=== PATIENT | male | born 1940 | race Caucasian/White ===

== ENCOUNTER → 2017-11-01 | Outpatient (CLI) | payer MEDICARE, SELFPAY | PROVIDERS: Visit Provider Nurse Practitioner | DX: I48.91 Unspecified atrial fibrillation (principal); Z79.01 Long term (current) use of anticoagulants; Z51.81 Encounter for therapeutic drug level monitoring | CPT/HCPCS: 36415; 85610 ==

== ENCOUNTER → 2017-11-27 09:50 | Outpatient (CLI) | payer MEDICARE, SELFPAY ==
[2017-11-27 13:26] LABS: INR 3.07 (0.9-1.1); Prothrombin Time 33.5 seconds (9.4-11.8)
== END ==
PROVIDERS: Visit Provider Nurse Practitioner
DX: I48.91 Unspecified atrial fibrillation (principal); Z79.01 Long term (current) use of anticoagulants; Z51.81 Encounter for therapeutic drug level monitoring
CPT/HCPCS: 36415; 85610

== ENCOUNTER → 2017-12-28 09:22 | Outpatient (CLI) | payer MEDICARE, SELFPAY ==
[2017-12-28 14:37] LABS: INR 3.71 (0.9-1.1); Prothrombin Time 40.6 seconds (9.4-11.8)
== END ==
PROVIDERS: Visit Provider Nurse Practitioner
DX: I48.91 Unspecified atrial fibrillation (principal)
CPT/HCPCS: 36415; 85610

== ENCOUNTER → 2018-01-25 08:49 | Outpatient (CLI) | payer MEDICARE, SELFPAY ==
[2018-01-25 14:38] LABS: INR 3.11 (0.9-1.1)
== END ==
PROVIDERS: Visit Provider Nurse Practitioner
DX: Z79.01 Long term (current) use of anticoagulants (principal); Z51.81 Encounter for therapeutic drug level monitoring; I48.91 Unspecified atrial fibrillation
CPT/HCPCS: 36415; 85610

== ENCOUNTER → 2018-02-23 10:23 | Outpatient (CLI) | payer MEDICARE, SELFPAY ==
[2018-02-23 13:30] LABS: INR 3.18 (0.9-1.1); Prothrombin Time 34.8 seconds (9.4-11.8)
== END ==
PROVIDERS: Visit Provider Nurse Practitioner
DX: Z79.01 Long term (current) use of anticoagulants (principal); Z51.81 Encounter for therapeutic drug level monitoring; I48.91 Unspecified atrial fibrillation
CPT/HCPCS: 36415; 85610

== ENCOUNTER → 2018-03-12 09:08 | Outpatient (CLI) | payer MEDICARE, SELFPAY ==
[2018-03-12 13:55] LABS: INR 1.94 (0.9-1.1); Prothrombin Time 21.1 seconds (9.4-11.8)
== END ==
PROVIDERS: Visit Provider Nurse Practitioner
DX: Z79.01 Long term (current) use of anticoagulants (principal); Z51.81 Encounter for therapeutic drug level monitoring; I48.91 Unspecified atrial fibrillation
CPT/HCPCS: 36415; 85610

== ENCOUNTER → 2018-04-11 09:06 | Outpatient (CLI) | payer MEDICARE, SELFPAY ==
[2018-04-11 14:12] LABS: Prothrombin Time 21.8 seconds (9.4-11.8)
== END ==
PROVIDERS: Visit Provider Nurse Practitioner
DX: I48.91 Unspecified atrial fibrillation (principal)
CPT/HCPCS: 36415; 85610

== ENCOUNTER → 2018-05-21 08:39 | Outpatient (CLI) | payer MEDICARE, SELFPAY ==
[2018-05-21 13:25] LABS: INR 2.19 (0.9-1.1); Prothrombin Time 22.1 seconds (9.4-11.8)
== END ==
PROVIDERS: Visit Provider Nurse Practitioner
DX: Z79.01 Long term (current) use of anticoagulants (principal); Z51.81 Encounter for therapeutic drug level monitoring; I48.91 Unspecified atrial fibrillation
CPT/HCPCS: 36415; 85610

== ENCOUNTER → 2018-06-21 11:32 | Outpatient (CLI) | payer MEDICARE, SELFPAY ==
[2018-06-21 14:13] LABS: INR 2.81 (0.9-1.1); Prothrombin Time 28.1 seconds (9.4-11.8)
== END ==
PROVIDERS: Visit Provider Nurse Practitioner
DX: I48.91 Unspecified atrial fibrillation (principal)
CPT/HCPCS: 36415; 85610

== ENCOUNTER → 2018-07-30 09:31 | Outpatient (CLI) | payer MEDICARE, SELFPAY | PROVIDERS: PCP Nurse Practitioner; Visit Provider Nurse Practitioner | DX: I48.91 Unspecified atrial fibrillation (principal) | CPT/HCPCS: 36415; 85610 ==

== ENCOUNTER → 2018-08-21 10:16 | Outpatient (CLI) | payer MEDICARE, SELFPAY ==
[2018-08-21 14:17] LABS: INR 2.17 (0.9-1.1); Prothrombin Time 21.9 seconds (9.4-11.8)
== END ==
PROVIDERS: PCP Nurse Practitioner; Visit Provider Nurse Practitioner
DX: Z51.81 Encounter for therapeutic drug level monitoring (principal); Z79.01 Long term (current) use of anticoagulants; I48.91 Unspecified atrial fibrillation
CPT/HCPCS: 36415; 85610

== ENCOUNTER → 2018-09-25 09:47 | Outpatient (CLI) | payer MEDICARE, SELFPAY ==
[2018-09-25 14:12] LABS: INR 2.19 (0.9-1.1); Prothrombin Time 22.1 seconds (9.4-11.8)
== END ==
PROVIDERS: Visit Provider Nurse Practitioner
DX: Z51.81 Encounter for therapeutic drug level monitoring (principal); Z79.01 Long term (current) use of anticoagulants; I48.91 Unspecified atrial fibrillation
CPT/HCPCS: 36415; 85610

== ENCOUNTER → 2018-10-24 08:37 | Outpatient (CLI) | payer MEDICARE, SELFPAY ==
[2018-10-24 14:57] LABS: INR 1.87 (0.9-1.1); Prothrombin Time 18.9 seconds (9.4-11.8)
== END ==
PROVIDERS: Visit Provider Nurse Practitioner
DX: I48.91 Unspecified atrial fibrillation (principal)
CPT/HCPCS: 36415; 85610

== ENCOUNTER → 2018-11-30 09:42 | Outpatient (CLI) | payer MEDICARE, SELFPAY ==
[2018-11-30 14:18] LABS: INR 1.71 (0.9-1.1); Prothrombin Time 17.3 seconds (9.4-11.8)
== END ==
PROVIDERS: Visit Provider Nurse Practitioner
DX: Z51.81 Encounter for therapeutic drug level monitoring (principal); Z79.01 Long term (current) use of anticoagulants; I48.91 Unspecified atrial fibrillation
CPT/HCPCS: 36415; 85610

== ENCOUNTER → 2018-12-17 08:38 | Outpatient (CLI) | payer MEDICARE, SELFPAY ==
[2018-12-17 13:56] LABS: INR 1.83 (0.9-1.1); Prothrombin Time 18.5 seconds (9.4-11.8)
== END ==
PROVIDERS: Visit Provider Nurse Practitioner
DX: Z51.81 Encounter for therapeutic drug level monitoring (principal); Z79.01 Long term (current) use of anticoagulants; I48.91 Unspecified atrial fibrillation
CPT/HCPCS: 36415; 85610

== ENCOUNTER → 2018-12-31 09:57 | Outpatient (CLI) | payer MEDICARE, SELFPAY ==
[2018-12-31 13:53] LABS: INR 2.04 (0.9-1.1); Prothrombin Time 20.6 seconds (9.4-11.8)
== END ==
PROVIDERS: Visit Provider Nurse Practitioner
DX: Z51.81 Encounter for therapeutic drug level monitoring (principal); Z79.01 Long term (current) use of anticoagulants; I48.91 Unspecified atrial fibrillation
CPT/HCPCS: 36415; 85610

== ENCOUNTER → 2019-01-28 10:48 | Outpatient (CLI) | payer MEDICARE, SELFPAY ==
[2019-01-28 14:43] LABS: Prothrombin Time 25.1 seconds (9.4-11.8)
== END ==
PROVIDERS: Visit Provider Nurse Practitioner
DX: Z51.81 Encounter for therapeutic drug level monitoring (principal); Z79.01 Long term (current) use of anticoagulants; I48.91 Unspecified atrial fibrillation
CPT/HCPCS: 36415; 85610

== ENCOUNTER → 2019-02-28 09:10 | Outpatient (CLI) | payer MEDICARE, SELFPAY ==
[2019-02-28 15:48] LABS: INR 2.12 (0.9-1.1); Prothrombin Time 21.4 seconds (9.4-11.8)
== END ==
PROVIDERS: Visit Provider Nurse Practitioner
DX: Z51.81 Encounter for therapeutic drug level monitoring (principal); Z79.01 Long term (current) use of anticoagulants; I48.91 Unspecified atrial fibrillation
CPT/HCPCS: 36415; 85610

== ENCOUNTER → 2019-03-13 08:42 | Outpatient (CLI) | payer MEDICARE, SELFPAY ==
[2019-03-13 14:08] LABS: INR 1.69 (0.9-1.1); Prothrombin Time 17.2 seconds (9.4-11.8)
== END ==
PROVIDERS: Visit Provider Nurse Practitioner
DX: I48.91 Unspecified atrial fibrillation (principal)
CPT/HCPCS: 36415; 85610

== ENCOUNTER → 2019-03-29 08:23 | Outpatient (CLI) | payer MEDICARE, SELFPAY ==
[2019-03-29 14:51] LABS: INR 3.56 (0.9-1.1); Prothrombin Time 34.9 seconds (9.4-11.8)
== END ==
PROVIDERS: PCP Nurse Practitioner; Visit Provider Nurse Practitioner
DX: Z51.81 Encounter for therapeutic drug level monitoring (principal); Z79.01 Long term (current) use of anticoagulants; I48.91 Unspecified atrial fibrillation
CPT/HCPCS: 36415; 85610

== ENCOUNTER → 2019-04-09 08:20 | Outpatient (CLI) | payer MEDICARE, SELFPAY ==
[2019-04-09 15:26] LABS: INR 1.72 (0.9-1.1); Prothrombin Time 17.4 seconds (9.4-11.8)
== END ==
PROVIDERS: Visit Provider Nurse Practitioner
DX: Z51.81 Encounter for therapeutic drug level monitoring (principal); Z79.01 Long term (current) use of anticoagulants; I48.91 Unspecified atrial fibrillation
CPT/HCPCS: 36415; 85610

== ENCOUNTER → 2019-04-26 09:31 | Outpatient (CLI) | payer MEDICARE, SELFPAY ==
[2019-04-26 13:40] LABS: INR 1.98 (0.9-1.1); Prothrombin Time 19.9 seconds (9.4-11.8)
== END ==
PROVIDERS: Visit Provider Nurse Practitioner
DX: Z51.81 Encounter for therapeutic drug level monitoring (principal); Z79.01 Long term (current) use of anticoagulants; I48.91 Unspecified atrial fibrillation
CPT/HCPCS: 36415; 85610

== ENCOUNTER → 2019-05-22 10:50 | Outpatient (CLI) | payer MEDICARE, SELFPAY ==
[2019-05-22 15:48] LABS: INR 1.81 (0.9-1.1); Prothrombin Time 18.3 seconds (9.4-11.8)
== END ==
PROVIDERS: Visit Provider Nurse Practitioner
DX: Z51.81 Encounter for therapeutic drug level monitoring (principal); Z79.01 Long term (current) use of anticoagulants; I48.91 Unspecified atrial fibrillation
CPT/HCPCS: 36415; 85610

== ENCOUNTER → 2019-06-13 08:34 | Outpatient (CLI) | payer MEDICARE, SELFPAY ==
[2019-06-13 14:58] LABS: INR 2.33 (0.9-1.1); Prothrombin Time 23.3 seconds (9.4-11.8)
== END ==
PROVIDERS: Visit Provider Nurse Practitioner
DX: Z51.81 Encounter for therapeutic drug level monitoring (principal); Z79.01 Long term (current) use of anticoagulants; I48.91 Unspecified atrial fibrillation
CPT/HCPCS: 36415; 85610

== ENCOUNTER → 2019-07-22 08:12 | Outpatient (CLI) | payer MEDICARE, SELFPAY ==
[2019-07-22 14:39] LABS: INR 1.66 (0.9-1.1); Prothrombin Time 16.9 seconds (9.4-11.8)
== END ==
PROVIDERS: Visit Provider Nurse Practitioner
DX: Z51.81 Encounter for therapeutic drug level monitoring (principal); Z79.01 Long term (current) use of anticoagulants; I48.91 Unspecified atrial fibrillation
CPT/HCPCS: 36415; 85610

== ENCOUNTER → 2019-08-12 09:10 | Outpatient (CLI) | payer MEDICARE, SELFPAY ==
[2019-08-12 15:40] LABS: INR 1.91 (0.9-1.1); Prothrombin Time 19.3 seconds (9.4-11.8)
== END ==
PROVIDERS: Visit Provider Internal Medicine Cardiovascular Disease
DX: Z51.81 Encounter for therapeutic drug level monitoring (principal); Z79.01 Long term (current) use of anticoagulants; I48.91 Unspecified atrial fibrillation
CPT/HCPCS: 36415; 85610

== ENCOUNTER → 2019-08-27 08:53 | Outpatient (CLI) | payer MEDICARE, SELFPAY ==
[2019-08-27 14:32] LABS: INR 2.21 (0.9-1.1); Prothrombin Time 22.1 seconds (9.4-11.8)
== END ==
PROVIDERS: Visit Provider Internal Medicine Cardiovascular Disease
DX: I48.91 Unspecified atrial fibrillation (principal)
CPT/HCPCS: 36415; 85610

== ENCOUNTER → 2019-09-24 09:32 | Outpatient (CLI) | payer MEDICARE, SELFPAY ==
[2019-09-24 13:38] LABS: INR 2.16 (0.9-1.1); Prothrombin Time 21.7 seconds (9.4-11.8)
== END ==
PROVIDERS: Visit Provider Internal Medicine Cardiovascular Disease
DX: Z51.81 Encounter for therapeutic drug level monitoring (principal); Z79.01 Long term (current) use of anticoagulants; I48.91 Unspecified atrial fibrillation
CPT/HCPCS: 36415; 85610

== ENCOUNTER → 2019-10-22 11:10 | Outpatient (CLI) | payer MEDICARE, SELFPAY ==
[2019-10-22 14:49] LABS: INR 2.91 (0.9-1.1); Prothrombin Time 28.8 seconds (9.4-11.8)
== END ==
PROVIDERS: PCP Internal Medicine Adolescent Medicine; Visit Provider Internal Medicine Adolescent Medicine
DX: Z51.81 Encounter for therapeutic drug level monitoring (principal); Z79.01 Long term (current) use of anticoagulants; I48.91 Unspecified atrial fibrillation
CPT/HCPCS: 85610

== ENCOUNTER → 2019-11-28 10:28 | Outpatient (CLI) | payer MEDICARE, SELFPAY ==
[2019-11-28 14:15] LABS: Prothrombin Time 19.2 seconds (9.4-11.8)
== END ==
PROVIDERS: Visit Provider Internal Medicine Cardiovascular Disease
DX: I48.91 Unspecified atrial fibrillation (principal)
CPT/HCPCS: 36415; 85610

== ENCOUNTER → 2020-01-08 09:34 | Outpatient (CLI) | payer MEDICARE, SELFPAY ==
[2020-01-08 15:40] LABS: INR 1.95 (0.9-1.1); Prothrombin Time 19.6 seconds (9.4-11.8)
== END ==
PROVIDERS: Visit Provider Internal Medicine Cardiovascular Disease
DX: Z51.81 Encounter for therapeutic drug level monitoring (principal); Z79.01 Long term (current) use of anticoagulants; I48.91 Unspecified atrial fibrillation
CPT/HCPCS: 36415; 85610

== ENCOUNTER → 2020-01-29 09:15 | Outpatient (CLI) | payer MEDICARE, SELFPAY ==
[2020-01-29 14:27] LABS: INR 2.64 (0.9-1.1); Prothrombin Time 26.2 seconds (9.4-11.8)
== END ==
PROVIDERS: Visit Provider Internal Medicine Cardiovascular Disease
DX: Z51.81 Encounter for therapeutic drug level monitoring (principal); Z79.01 Long term (current) use of anticoagulants; I48.91 Unspecified atrial fibrillation
CPT/HCPCS: 36415; 85610

== ENCOUNTER 2021-02-17 08:29 | Observation (INO) | payer MEDICARE, SELFPAY ==
[2021-02-17] VITALS (11 sets, daily range): BP systolic 126–173; BP diastolic 60–84; PULSE 67–71; RESP 16–18; TEMP 36.5–36.9; O2SAT 94–100; BMI 45.3
[2021-02-17 09:05] LABS: Occult Blood,Stool Positive (Negative)
[2021-02-17 09:13] LABS: Basophils # 0.1 K/mm3 (0-0.2); Basophils % 0.9 % (0.1-2.0); Eosinophils # 0.2 K/mm3 (0.0-0.4); Eosinophils % 2.1 % (0.1-12.0); Hematocrit 42.6 % (42.0-52.0); Hemoglobin 13.3 g/dL (14.1-18.0); Lymphocytes # 2.6 K/mm3 (0.7-4.5); Lymphocytes % 26.6 % (10-50); Mean Corpuscular HGB Conc 31.1 g/dL (31.8-35.4); Mean Corpuscular Hemoglobin 26.1 pg (27.0-31.2); Mean Corpuscular Volume 83.9 fl (80-94); Mean Platelet Volume 8.4 fl (7.4-10.4); Monocytes # 5.8 K/mm3 (0.1-1.0); Monocytes % 58.6 % (1.7-9.3); Neutrophils # 1.2 K/mm3 (1.8-7.8); Neutrophils % 11.7 % (37.0-80.0); Platelet Count 161 K/mm3 (142-424); Red Blood Count 5.08 M/mm3 (4.60-6.20); Red Cell Distribution Width 15.8 % (11.5-17.5); White Blood Count 9.8 K/mm3 (4.8-10.8)
[2021-02-17 09:15] LABS: MANUAL DIFFERENTIAL MANUAL DIFFERENTIAL (MANUAL DIFF)
[2021-02-17 09:16] LABS: Chloride 106 mmol/L (98-107); Potassium 4.4 mmoL/L (3.5-5.1); Sodium 137 mmol/L (136-145)
[2021-02-17 09:19] LABS: Alanine Aminotransferase 19 U/L (12-78); Albumin Level 4.1 g/dl (3.5-5.0); Albumin/Globulin Ratio 1.4 (1.1-1.8); Alkaline Phosphatase 95 U/L (38-126); Anion Gap 9.4 mEq/L (5-15); Aspartate Amino Transferase 28 U/L (17-59); Bilirubin,Total 0.7 mg/dl (0.2-1.3); Blood Urea Nitrogen 31 mg/dl (9-20); Carbon Dioxide 26 mmol/L (22.0-30.0); Creatinine Clearance Estimated 57 mL/min (50-200); Estimated Glomerular Filt Rate 72 ml/min (>60); GFR (African American) 87 ML/MIN (>60); Total Protein,Serum 7.1 g/dl (6.3-8.2)
[2021-02-17 09:20] LABS: Calcium 9.5 mg/dl (8.4-10.2); Glucose 112 mg/dl (74-100)
[2021-02-17 09:23] LABS: Eosinophils % 1 % (0-3); Lymphocytes % 17 % (10-50); Monocytes % 5 % (2-9); Neutrophils % 77 % (42-76); Platelet Estimate Normal; Total Cells Counted 100
[2021-02-17 09:24] LABS: Hypochromasia 1+
[2021-02-17 09:32] LABS: INR 2.35 (0.9-1.1)
--- NOTE | 2021-02-17 09:46 | PC.NURSE ---
paged Dr Phillips
--- NOTE | 2021-02-17 09:54 | PC.NURSE ---
ELIJAH SANDHU speaking with Dr. Puri
[2021-02-17 09:57] LABS: Microscopic, Urine URINE MICROSCOPIC (MICROSCOPIC)
[2021-02-17 10:00] LABS: Appearance,Urine CLEAR (Clear); Bilirubin,Urine Negative (Negative); Blood, Urine TRACE-I (Negative); Color,Urine YELLOW (Yellow); Glucose,Urine (UA) Negative (Negative); Ketones,Urine Negative (Negative); Leukocyte Esterase,Urine Negative (Negative); Nitrate,Urine Negative (Negative); Protein,Urine Negative (Negative); Specific Gravity, Urine 1.025 (1.005-1.030); Urobilinogen,Urine 0.2 EU/dl (0.2)
--- NOTE | 2021-02-17 10:01 | PC.NURSE ---
placed call to Dr Hernandez
[2021-02-17 10:08] LABS: Squamous Epithelial Cell,Urine Occasional #/hpf (0-5)
--- NOTE | 2021-02-17 10:12 | HMH.EDGENADL ---
ED Disposition Clinical Impression: GI bleed, Anticoagulated on Coumadin Disposition: Admitted As Inpatient Condition on Discharge: Good Instructions: DI for Gastrointestinal Bleeding Referrals: Jennie Rao [Primary Care Provider] - - Critical Care Critical Care Time: No Attestation: On 02/17/21, the high probability of a clinically significant, sudden or life threatening deterioration of the following system(s) required my full and direct attention, intervention and personal management. The time I documented below is in addition to time spent performing reported procedures but includes the following listed in this critical care notation. Medical Decision Making - Medical Records Medical records reviewed: Yes: I reviewed the patient's medical records. - Aron Inquiry Pt receiving controlled substance: No Vital Signs: 02/17/21 08:29 02/17/21 09:00 02/17/21 09:26 Temperature 97.9 F Temperature Source Oral Pulse Rate 70 69 Pulse Rate [Right Radial] 70 Respiratory Rate 18 18 Blood Pressure 173/84 H 173/84 H Blood Pressure [Right Arm] 159/80 H Blood Pressure Mean 113 Blood Pressure Mean [Right Arm] 106 Blood Pressure Source [Right Arm] Automatic Cuff Blood Pressure Position [Right Arm] Sitting 02 Sat by Pulse Oximetry 97 100 98 Oxygen Delivery Method Room Air - Lab Data Lab Results 02/17/21 08:43: Stool Occult Blood Positive A 02/17/21 08:54: Urine Color Yellow, Urine Appearance Clear, Urine pH 6.0, Ur Specific [place] 1.025, Urine Protein Negative, Urine Glucose (UA) Negative, Urine Ketones Negative, Urine Blood Trace-i, Urine Nitrate Negative, Urine Bilirubin Negative, Urine Urobilinogen 0.2, Ur Leukocyte Esterase Negative, Urine RBC 3-5, Urine WBC 3-5, Ur Squamous Epith Cells Occasional, Urine Bacteria None 02/17/21 09:03: WBC 9.8, RBC 5.08, Hgb 13.3 L, Hct 42.6, MCV 83.9, MCH 26.1 L, MCHC 31.1 L, RDW 15.8, Plt Count 161, MPV 8.4, Neut % (Auto) 11.7 L, Lymph % (Auto) 26.6, [place] % (Auto) 58.6 H, Eos % (Auto) 2.1, Baso % (Auto) 0.9, Neut # (Auto) 1.2 L, Lymph # (Auto) 2.6, [place] # (Auto) 5.8 H, Eos # (Auto) 0.2, Baso # (Auto) 0.1, Total Counted 100, Neutrophils % (Manual) 77 H, Lymphocytes % (Manual) 17, Monocytes % (Manual) 5, Eosinophils % (Manual) 1, Platelet Estimate Normal, Hypochromasia 1+ 02/17/21 09:03: Sodium 137, Potassium 4.4, Chloride 106, Carbon Dioxide 26, Anion Gap 9.4, BUN 31 H, Creatinine 1.00, Estimated Creat Clear 57, Estimated GFR 72, Est GFR ( Amer) 87, Glucose 112 H, Calcium 9.5, Total Bilirubin 0.7, AST 28, ALT 19, Alkaline Phosphatase 95, Total Protein 7.1, Albumin 4.1, Globulin 3.0, Albumin/Globulin Ratio 1.4 02/17/21 09:03: PT 26.0 H, INR 2.35 H 02/17/21 09:03: Digoxin 1.00 Result diagrams: 02/17/21 09:03 02/17/21 09:03 Orders (Tests/Meds): ORDERS Category Date Time Status Consult to Surgeon On-Call [Consult to On-Call Gen'l Cons 02/17/21 10:09 Ordered Surgeon] [CONS] Routine Complete Blood Count Auto Diff AMLAB Lab 02/18/21 06:00 Ordered Complete Blood Count Auto Diff Timed Lab 02/17/21 14:00 Ordered Comprehensive Metabolic Panel AMLAB Lab 02/18/21 06:00 Ordered Full Resp Panel w/COVID ([facility]) Routine Lab 02/17/21 10:04 Ordered Prothrombin Time INR AMLAB Lab 02/18/21 06:00 Ordered Medical Decision Narrative: 80-year-old male presents with lower GI bleed. He is awake and alert with normal vital signs in no acute distress comfortable in the bed with normal abdominal exam. He has not had a bowel movement in the emergency department. Occult stool showed heme positive stool without active bleeding. No indication for CT scan at this time without abdominal pain or other vital sign abnormalities. INR was therapeutic at 2.35 and hemoglobin was 13.3 no indication for blood at this time. I discussed case with Dr. Flores who recommended admission to the hospital for consultation. I discussed the case with Dr. Hernandez who recommended adm
[2021-02-17 10:13] LABS: Adenovirus,PCR Not Detected (NotDetected); Bordetella Pertussis Not Detected (NotDetected); Chlamydophila Pneumoniae, PCR Not Detected (NotDetected); Coronavirus 19, PCR Not Detected (NotDetected); Coronavirus 229E Not Detected (NotDetected); Coronavirus NL63 Not Detected (NotDetected); Coronavirus OC43 Not Detected (NotDetected); Coronovirus HKU1,PCR Not Detected (NotDetected); Human Metapneumovirus Not Detected (NotDetected); Influenza A, PCR Not Detected (NotDetected); Influenza AH1, 2009 Not Detected (NotDetected); Influenza AH1, PCR Not Detected (NotDetected); Influenza AH3,PCR Not Detected (NotDetected); Influenza B, PCR Not Detected (NotDetected); Mycoplasma Pneumoniae, PCR Not Detected (NotDetected); Parainfluenza 1, PCR Not Detected (NotDetected); Parainfluenza 2, PCR Not Detected (NotDetected); Parainfluenza 3, PCR Not Detected (NotDetected); Parainfluenza 4, PCR Not Detected (NotDetected); Respiratory Syncytial Virus Not Detected (NotDetected); Rhinovirus/Enterovirus Not Detected (NotDetected)
--- NOTE | 2021-02-17 11:52 | HMH.GSCON ---
*Admission Date: 02/17/21 *Reason for consult:: GI bleeding *History of present illness: Patient is an 80-year-old diabetic male with a BMI of 46 [address] in [facility]. He is on chronic warfarin anticoagulation therapy. He had the urge to defecate today and actually passed a significant amount of blood including some incontinence of blood clots. He denies abdominal pain. He presented to the emergency department where you are seen and evaluated. He was hemodynamically stable. INR 2.3. He was admitted for inpatient management and surgical consultation. Of note, the patient did have a prior colonoscopy in [place] many years ago reportedly had a polyp. Denies any abdominal pain or cramping. Reportedly had diarrhea several days ago. Review of Systems - Review of Systems Review of systems:: pertinent systems reviewed and negative unless documented below - *Neurologic Denies dizziness, Denies headache(s), Denies numbness, Denies weakness [facility] History I have reviewed the patient's past medical history: Yes *Have you ever received a pneumonia vaccine?: Yes *Have you received a flu vaccine this season?: Yes - *Social History Smoking Status: Former smoker Alcohol Intake: never *Occupational Status:: disabled Housing: house *Travel in the last 8 weeks: None Family Hx:: Non-contributory Meds Home Medications Medication Instructions Recorded Confirmed Type Atorvastatin Calcium [Lipitor 40mg 40 mg PO HS 02/17/21 02/17/21 History Tab] Digoxin [Digoxin 0.125mg Tablet] 250 mcg PO DAILY 02/17/21 02/17/21 History Finasteride [Proscar] 5 mg PO DAILY 02/17/21 02/17/21 History Metformin HCl [Metformin 1000mg 1,000 mg PO BID 02/17/21 02/17/21 History Tablets] Metoprolol Succinate [Metoprolol 50 mg PO DAILY 02/17/21 02/17/21 History Succinate 50mg Tablet*] Omeprazole [Omeprazole 40mg 40 mg PO DAILY 02/17/21 02/17/21 History Capsule] Pioglitazone HCl 30 mg PO DAILY 02/17/21 02/17/21 History Warfarin Sodium 5 mg PO DIRECTED 02/17/21 02/17/21 History Allergies Allergy/AdvReac Type Severity Reaction Status Date / Time No Known Allergies Allergy Verified 09/10/19 13:50 Exam Vital signs and Labs for Last 24 Hours: Temp Pulse Resp BP Pulse Ox 97.9 F 71 18 141/73 H 96 02/17/21 08:29 02/17/21 10:30 02/17/21 09:26 02/17/21 10:30 02/17/21 10:30 Laboratory Results - last 24 hr 02/17/21 08:43: Stool Occult Blood Positive A 02/17/21 08:54: Urine Color Yellow, Urine Appearance Clear, Urine pH 6.0, Ur Specific [place] 1.025, Urine Protein Negative, Urine Glucose (UA) Negative, Urine Ketones Negative, Urine Blood Trace-i, Urine Nitrate Negative, Urine Bilirubin Negative, Urine Urobilinogen 0.2, Ur Leukocyte Esterase Negative, Urine RBC 3-5, Urine WBC 3-5, Ur Squamous Epith Cells Occasional, Urine Bacteria None 02/17/21 09:03: WBC 9.8, RBC 5.08, Hgb 13.3 L, Hct 42.6, MCV 83.9, MCH 26.1 L, MCHC 31.1 L, RDW 15.8, Plt Count 161, MPV 8.4, Neut % (Auto) 11.7 L, Lymph % (Auto) 26.6, [place] % (Auto) 58.6 H, Eos % (Auto) 2.1, Baso % (Auto) 0.9, Neut # (Auto) 1.2 L, Lymph # (Auto) 2.6, [place] # (Auto) 5.8 H, Eos # (Auto) 0.2, Baso # (Auto) 0.1, Total Counted 100, Neutrophils % (Manual) 77 H, Lymphocytes % (Manual) 17, Monocytes % (Manual) 5, Eosinophils % (Manual) 1, Platelet Estimate Normal, Hypochromasia 1+ 02/17/21 09:03: Sodium 137, Potassium 4.4, Chloride 106, Carbon Dioxide 26, Anion Gap 9.4, BUN 31 H, Creatinine 1.00, Estimated Creat Clear 57, Estimated GFR 72, Est GFR ( Amer) 87, Glucose 112 H, Calcium 9.5, Total Bilirubin 0.7, AST 28, ALT 19, Alkaline Phosphatase 95, Total Protein 7.1, Albumin 4.1, Globulin 3.0, Albumin/Globulin Ratio 1.4 02/17/21 09:03: PT 26.0 H, INR 2.35 H 02/17/21 09:03: Digoxin 1.00 02/17/21 10:09: Chlamy pneumoniae PCR Not detected, Adenovirus (PCR) Not detected, B. pertussis DNA (PCR) Not detected, Coronavirus OC43 (PCR) Not detected, Coronavirus HKU1 (PCR) Not detected
--- NOTE | 2021-02-17 12:10 | PC.NURSE ---
report called to Adamaris Vallecillo RN on second floor
--- NOTE | 2021-02-17 12:29 | PC.NURSE ---
Pt arrived to the floor at this time.
--- NOTE | 2021-02-17 13:13 | P.CONPHA_ITS ---
[facility] Pharmacy VTE Monitoring - Patient Demographics Admission date: 02/17/21 Report Date: 02/17/21 Time: 13:13 Allergies/Adverse Reactions: Patient Allergies No Known Allergies Allergy (Verified 09/10/19 13:50) Height: 1.73 m Weight: 135.171 kg Patient Problems: Current Active Problems GI bleed (Acute) Anticoagulated on Coumadin (Acute) - VTE Risk Labs: VTE Related Lab Results Hgb 13.3 g/dL (14.1-18.0) L 02/17/21 09:03 Hct 42.6 % (42.0-52.0) 02/17/21 09:03 Plt Count 161 K/mm3 (142-424) 02/17/21 09:03 PT 26.0 seconds (10.1-12.5) H 02/17/21 09:03 INR 2.35 (0.9-1.1) H 02/17/21 09:03 BUN 31 mg/dl (9-20) H 02/17/21 09:03 Creatinine 1.00 mg/dl (0.66-1.25) 02/17/21 09:03 Estimated Creat Clear 57 mL/min (50-200) 02/17/21 09:03 Was VTE Risk Assessment Performed: Yes - Prophylaxis VTE Prophylaxis Ordered?: Yes Types of VTE Prophylaxis: TEDS Knee High Location of Applied Device: Bilateral Lower Extremeties
--- NOTE | 2021-02-17 13:14 | HMH.PHAINT ---
MEDICATION RECONCILIATION COMPLETED ON PATIENT USING EXTERNAL FILL HISTORY FROM PHARMACY. -JEANNIE HATCH, SHERID
[2021-02-17 14:07] LABS: Basophils # 0.1 K/mm3 (0-0.2); Basophils % 0.8 % (0.1-2.0); Eosinophils # 0.2 K/mm3 (0.0-0.4); Eosinophils % 2.2 % (0.1-12.0); Hematocrit 43.4 % (42.0-52.0); Hemoglobin 13.3 g/dL (14.1-18.0); Lymphocytes % 29.8 % (10-50); Mean Corpuscular HGB Conc 30.6 g/dL (31.8-35.4); Mean Corpuscular Hemoglobin 25.6 pg (27.0-31.2); Mean Corpuscular Volume 83.5 fl (80-94); Mean Platelet Volume 8.3 fl (7.4-10.4); Monocytes # 5.8 K/mm3 (0.1-1.0); Monocytes % 57.5 % (1.7-9.3); Platelet Count 145 K/mm3 (142-424); Red Cell Distribution Width 15.6 % (11.5-17.5); White Blood Count 10.1 K/mm3 (4.8-10.8)
[2021-02-17 14:10] LABS: Neutrophils % 9.7 % (37.0-80.0)
--- NOTE | 2021-02-17 16:47 | HMH.HP ---
*Admission Date: 02/17/21 *Chief complaint: Blood in stool *History of present illness: 80-year-old male with history of previous GI bleed 10 years ago from bleeding polyp according to his daughter presented to the emergency department after an episode of large volume of blood in his stool.. Patient was not anemic in the emergency department and had normal vital signs. He did not have any abdominal pain. Patient's last colonoscopy was approximately 10 years ago when he had a prior GI bleed. Patient had maroon-colored stool. Dr. Phillips was contacted by the ER physician recommended admission and observation. Patient has been admitted. Subsequently repeat CBC is unchanged. He has not had any further evidence of bleeding at this time. Patient takes warfarin for atrial fibrillation [facility] History I have reviewed the patient's past medical history: Yes Medical History: Reports:: Atrial Fibrillation, Cancer (skin cancer removed x2), Diabetes Mellitus Type 2, Hyperlipidemia, Hypertension, Internal Pacemaker, Myocardial Infarction, Peripheral Artery Disease, Peripheral Vascular Disease Denies:: Diabetes Mellitus Type 1, MRSA *Have you ever received a pneumonia vaccine?: Yes *Have you received a flu vaccine this season?: Yes Other Medical History: Reports: Arthritis, Cataracts (Removed) Other Surgeries: Yes: CABG, Cardiac Catheterization, Colonoscopy, Open Heart Surgery, Pacemaker, Other (knee surgery) Amputation: No Fractures: Yes - *Social History Last grade of school completed: High school graduate Smoking Status: Former smoker Alcohol Intake: never *Occupational Status:: retired, disabled Housing: house Household Members: spouse *Travel in the last 8 weeks: None Family Hx:: Cancer, Diabetes, Heart Attack, Hyperlipidemia, Hypertension Review of Systems - Constitutional Denies anorexia, Denies body ache(s), Denies lack of energy - Eyes Denies change in vision - ENT Denies bleeding gums - *Cardiovascular Denies chest pain, Denies chest pain at rest, Denies chest pain with activity - *Respiratory Denies change in phlegm color, Denies chest congestion, Denies cough - *Gastrointestinal Denies bloating, Denies heartburn - *Genitourinary Denies blood in urine (By Tatiana can hear footsteps actually well it was just really a shot in ) - *Musculoskeletal Reports joint pain - Integumentary/Breasts Denies hair loss - *Neurologic Denies dizziness, Denies headache(s), Denies numbness, Denies weakness Meds Home Medications Medication Instructions Recorded Confirmed Type Atorvastatin Calcium [Lipitor 40mg 40 mg PO HS 02/17/21 02/17/21 History Tab] Digoxin [Digoxin 0.125mg Tablet] 125 mcg PO DAILY 02/17/21 02/17/21 History Finasteride [Proscar] 5 mg PO DAILY 02/17/21 02/17/21 History Metformin HCl [Metformin 1000mg 1,000 mg PO BID 02/17/21 02/17/21 History Tablets] Metoprolol Succinate [Metoprolol 50 mg PO DAILY 02/17/21 02/17/21 History Succinate 50mg Tablet*] Omeprazole [Omeprazole 40mg 40 mg PO DAILY 02/17/21 02/17/21 History Capsule] Pioglitazone HCl 30 mg PO DAILY 02/17/21 02/17/21 History Warfarin Sodium 5 mg PO SUMOWEFRSA 02/17/21 02/17/21 History Warfarin Sodium 10 mg PO TUTH 02/17/21 02/17/21 History Allergies Allergy/AdvReac Type Severity Reaction Status Date / Time No Known Allergies Allergy Verified 09/10/19 13:50 Exam Vital signs and Labs for Last 24 Hours: Temp Pulse Resp BP Pulse Ox 97.9 F 67 18 141/76 H 98 02/17/21 12:25 02/17/21 12:25 02/17/21 12:25 02/17/21 12:25 02/17/21 12:00 Laboratory Results - last 24 hr 02/17/21 08:43: Stool Occult Blood Positive A 02/17/21 08:54: Urine Color Yellow, Urine Appearance Clear, Urine pH 6.0, Ur Specific [place] 1.025, Urine Protein Negative, Urine Glucose (UA) Negative, Urine Ketones Negative, Urine Blood Trace-i, Urine Nitrate Negative, Urine Bilirubin Negative, Urine Urobilinogen 0.2, Ur Leukocyte Estera
[2021-02-18 04:00] VITALS: BP 136/68; PULSE 70; RESP 19; TEMP 36.5; O2SAT 100
--- NOTE | 2021-02-18 04:42 | PC.NURSE ---
shift ummary pts lung sounds are clear but slightly diminished with sats maintained 94% or above on room air with a rate ranging from 16-19. pt is alert and oriented X4. pt had 3 bright red bloody stools during this shift. pt denies any pain, nausea, light headedness, or being dizzy. pt is able to get up and walk to the restroom with a walker, and a standby assist.
[2021-02-18 05:15] VITALS: BMI 41.8
--- NOTE | 2021-02-18 07:20 | HMH.ACPN2 ---
Internal Medicine - PN: Subj *Date: 02/18/21 *Time: 07:20 Interval history: No change in patient's condition overnight. He did have 3 confirmed bowel movements with bright red blood, witnessed by nursing staff. He denies abdominal pain Exam Vital signs and Labs for Last 24 Hours: Temp Pulse Resp BP Pulse Ox 97.7 F 70 19 136/68 100 02/18/21 04:00 02/18/21 04:00 02/18/21 04:00 02/18/21 04:00 02/18/21 04:00 Laboratory Results - last 24 hr 02/17/21 08:43: Stool Occult Blood Positive A 02/17/21 08:54: Urine Color Yellow, Urine Appearance Clear, Urine pH 6.0, Ur Specific [place] 1.025, Urine Protein Negative, Urine Glucose (UA) Negative, Urine Ketones Negative, Urine Blood Trace-i, Urine Nitrate Negative, Urine Bilirubin Negative, Urine Urobilinogen 0.2, Ur Leukocyte Esterase Negative, Urine RBC 3-5, Urine WBC 3-5, Ur Squamous Epith Cells Occasional, Urine Bacteria None 02/17/21 09:03: WBC 9.8, RBC 5.08, Hgb 13.3 L, Hct 42.6, MCV 83.9, MCH 26.1 L, MCHC 31.1 L, RDW 15.8, Plt Count 161, MPV 8.4, Neut % (Auto) 11.7 L, Lymph % (Auto) 26.6, [place] % (Auto) 58.6 H, Eos % (Auto) 2.1, Baso % (Auto) 0.9, Neut # (Auto) 1.2 L, Lymph # (Auto) 2.6, [place] # (Auto) 5.8 H, Eos # (Auto) 0.2, Baso # (Auto) 0.1, Total Counted 100, Neutrophils % (Manual) 77 H, Lymphocytes % (Manual) 17, Monocytes % (Manual) 5, Eosinophils % (Manual) 1, Platelet Estimate Normal, Hypochromasia 1+ 02/17/21 09:03: Sodium 137, Potassium 4.4, Chloride 106, Carbon Dioxide 26, Anion Gap 9.4, BUN 31 H, Creatinine 1.00, Estimated Creat Clear 57, Estimated GFR 72, Est GFR ( Amer) 87, Glucose 112 H, Calcium 9.5, Total Bilirubin 0.7, AST 28, ALT 19, Alkaline Phosphatase 95, Total Protein 7.1, Albumin 4.1, Globulin 3.0, Albumin/Globulin Ratio 1.4 02/17/21 09:03: PT 26.0 H, INR 2.35 H 02/17/21 09:03: Digoxin 1.00 02/17/21 10:09: Chlamy pneumoniae PCR Not detected, Adenovirus (PCR) Not detected, B. pertussis DNA (PCR) Not detected, Coronavirus OC43 (PCR) Not detected, Coronavirus HKU1 (PCR) Not detected, Coronavirus 229E (PCR) Not detected, SARS-CoV-2 (PCR) Not detected, Coronavirus NL63 (PCR) Not detected, Human Metapneumovir PCR Not detected, Influenza A (H1) PCR Not detected, Influ A (H1N1/09) PCR Not detected, Influenza A (H3) PCR Not detected, Influenza Type A (PCR) Not detected, Influenza Type B (PCR) Not detected, M. pneumoniae (PCR) Not detected, Parainfluenza 1 (PCR) Not detected, Parainfluenza 2 (PCR) Not detected, Parainfluenza 3 (PCR) Not detected, Parainfluenza 4 (PCR) Not detected, RSV (PCR) Not detected, Entero/Rhino (PCR) Not detected 02/17/21 13:55: WBC 10.1, RBC 5.20, Hgb 13.3 L, Hct 43.4, MCV 83.5, MCH 25.6 L, MCHC 30.6 L, RDW 15.6, Plt Count 145, MPV 8.3, Neut % (Auto) 9.7 L, Lymph % (Auto) 29.8, [place] % (Auto) 57.5 H, Eos % (Auto) 2.2, Baso % (Auto) 0.8, Neut # (Auto) 1.0 L, Lymph # (Auto) 3.0, [place] # (Auto) 5.8 H, Eos # (Auto) 0.2, Baso # (Auto) 0.1 I & O for Last 24 hours: Intake & Output 02/15/21 02/16/21 02/17/21 02/18/21 11:59 11:59 11:59 11:59 Intake Total 960 / 960 Output Total 925 / 925 Balance 35 / 35 Weight 298 lb 276 lb 5 oz - Constitutional no acute distress - *Routine HEENT Exam Head: Present: normocephalic Eye: Present: EOMI, PERRL ENT: Present: mucous membranes moist - *Routine Respiratory Exam Present: CTA bilaterally - *Routine Cardiovascular Exam Present: RRR, Normal S1 - *Routine Abdominal Exam Present: normoactive bowel sounds Assessment and Plan (1) GI bleed Status: Acute Category: Medical Code(s): K92.2 - Gastrointestinal hemorrhage, unspecified (2) Atrial fibrillation Status: Acute Category: Medical Code(s): I48.91 - Unspecified atrial fibrillation (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
[2021-02-18 07:23] LABS: Basophils # 0.1 K/mm3 (0-0.2); Basophils % 0.9 % (0.1-2.0); Eosinophils # 0.3 K/mm3 (0.0-0.4); Eosinophils % 2.7 % (0.1-12.0); Hematocrit 40.8 % (42.0-52.0); Hemoglobin 12.7 g/dL (14.1-18.0); Lymphocytes # 2.7 K/mm3 (0.7-4.5); Lymphocytes % 27.4 % (10-50); Mean Corpuscular HGB Conc 31.1 g/dL (31.8-35.4); Mean Corpuscular Hemoglobin 25.9 pg (27.0-31.2); Mean Corpuscular Volume 83.3 fl (80-94); Mean Platelet Volume 8.4 fl (7.4-10.4); Monocytes # 5.5 K/mm3 (0.1-1.0); Monocytes % 56.4 % (1.7-9.3); Neutrophils # 1.2 K/mm3 (1.8-7.8); Platelet Count 150 K/mm3 (142-424); Red Cell Distribution Width 15.7 % (11.5-17.5); White Blood Count 9.7 K/mm3 (4.8-10.8)
[2021-02-18 07:26] LABS: Neutrophils % 12.5 % (37.0-80.0)
[2021-02-18 07:28] LABS: Chloride 106 mmol/L (98-107); MANUAL DIFFERENTIAL MANUAL DIFFERENTIAL (MANUAL DIFF); Potassium 4.3 mmoL/L (3.5-5.1); Sodium 139 mmol/L (136-145)
[2021-02-18 07:31] LABS: Alanine Aminotransferase 18 U/L (12-78); Albumin Level 3.7 g/dl (3.5-5.0); Albumin/Globulin Ratio 1.3 (1.1-1.8); Alkaline Phosphatase 83 U/L (38-126); Anion Gap 10.3 mEq/L (5-15); Aspartate Amino Transferase 27 U/L (17-59); Bilirubin,Total 0.8 mg/dl (0.2-1.3); Blood Urea Nitrogen 22 mg/dl (9-20); Carbon Dioxide 27 mmol/L (22.0-30.0); Creatinine Clearance Estimated 57 mL/min (50-200); Estimated Glomerular Filt Rate 93 ml/min (>60); GFR (African American) 113 ML/MIN (>60); Globulin 2.8 g/dL (1.3-3.2); Glucose 98 mg/dl (74-100); Total Protein,Serum 6.5 g/dl (6.3-8.2)
[2021-02-18 07:37] LABS: Prothrombin Time 23.2 seconds (10.1-12.5)
[2021-02-18 07:38] LABS: INR 2.08 (0.9-1.1)
[2021-02-18 08:00] VITALS: BP 122/63; PULSE 71; RESP 18; TEMP 37; O2SAT 99
--- NOTE | 2021-02-18 08:09 | HMH.GSPN ---
Subjective Narrative: Patient has had additional stools with fresh blood. Denies abdominal pain or cramping. Denies nausea. 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 Continue to allow coagulation profile to normalize. H&H relatively stable. Once INR 1.5 or less likely will plan for upper endoscopy initially to rule out upper GI source although this seems less likely at this time. May need colonoscopy ultimately, potentially as an early outpatient if rectal bleeding resolves with correction of coagulation profile and hemoglobin/hematocrit remains stable. This is of course pending the findings on potential upper endoscopy. Exam Vital signs and Labs for Last 24 Hours: Temp Pulse Resp BP Pulse Ox 97.7 F 70 19 136/68 100 02/18/21 04:00 02/18/21 04:00 02/18/21 04:00 02/18/21 04:00 02/18/21 04:00 Laboratory Results - last 24 hr 02/17/21 08:43: Stool Occult Blood Positive A 02/17/21 08:54: Urine Color Yellow, Urine Appearance Clear, Urine pH 6.0, Ur Specific [place] 1.025, Urine Protein Negative, Urine Glucose (UA) Negative, Urine Ketones Negative, Urine Blood Trace-i, Urine Nitrate Negative, Urine Bilirubin Negative, Urine Urobilinogen 0.2, Ur Leukocyte Esterase Negative, Urine RBC 3-5, Urine WBC 3-5, Ur Squamous Epith Cells Occasional, Urine Bacteria None 02/17/21 09:03: WBC 9.8, RBC 5.08, Hgb 13.3 L, Hct 42.6, MCV 83.9, MCH 26.1 L, MCHC 31.1 L, RDW 15.8, Plt Count 161, MPV 8.4, Neut % (Auto) 11.7 L, Lymph % (Auto) 26.6, [place] % (Auto) 58.6 H, Eos % (Auto) 2.1, Baso % (Auto) 0.9, Neut # (Auto) 1.2 L, Lymph # (Auto) 2.6, [place] # (Auto) 5.8 H, Eos # (Auto) 0.2, Baso # (Auto) 0.1, Total Counted 100, Neutrophils % (Manual) 77 H, Lymphocytes % (Manual) 17, Monocytes % (Manual) 5, Eosinophils % (Manual) 1, Platelet Estimate Normal, Hypochromasia 1+ 02/17/21 09:03: Sodium 137, Potassium 4.4, Chloride 106, Carbon Dioxide 26, Anion Gap 9.4, BUN 31 H, Creatinine 1.00, Estimated Creat Clear 57, Estimated GFR 72, Est GFR ( Amer) 87, Glucose 112 H, Calcium 9.5, Total Bilirubin 0.7, AST 28, ALT 19, Alkaline Phosphatase 95, Total Protein 7.1, Albumin 4.1, Globulin 3.0, Albumin/Globulin Ratio 1.4 02/17/21 09:03: PT 26.0 H, INR 2.35 H 02/17/21 09:03: Digoxin 1.00 02/17/21 10:09: Chlamy pneumoniae PCR Not detected, Adenovirus (PCR) Not detected, B. pertussis DNA (PCR) Not detected, Coronavirus OC43 (PCR) Not detected, Coronavirus HKU1 (PCR) Not detected, Coronavirus 229E (PCR) Not detected, SARS-CoV-2 (PCR) Not detected, Coronavirus NL63 (PCR) Not detected, Human Metapneumovir PCR Not detected, Influenza A (H1) PCR Not detected, Influ A (H1N1/09) PCR Not detected, Influenza A (H3) PCR Not detected, Influenza Type A (PCR) Not detected, Influenza Type B (PCR) Not detected, M. pneumoniae (PCR) Not detected, Parainfluenza 1 (PCR) Not detected, Parainfluenza 2 (PCR) Not detected, Parainfluenza 3 (PCR) Not detected, Parainfluenza 4 (PCR) Not detected, RSV (PCR) Not detected, Entero/Rhino (PCR) Not detected 02/17/21 13:55: WBC 10.1, RBC 5.20, Hgb 13.3 L, Hct 43.4, MCV 83.5, MCH 25.6 L, MCHC 30.6 L, RDW 15.6, Plt Count 145, MPV 8.3, Neut % (Auto) 9.7 L, Lymph % (Auto) 29.8, [place] % (Auto) 57.5 H, Eos % (Auto) 2.2, Baso % (Auto) 0.8, Neut # (Auto) 1.0 L, Lymph # (Auto) 3.0, [place] # (Auto) 5.8 H, Eos # (Auto) 0.2, Baso # (Auto) 0.1 02/18/21 07:03: WBC 9.7, RBC 4.90, Hgb 12.7 L, Hct 40.8 L, MCV 83.3, MCH 25.9 L, MCHC 31.1 L, RDW 15.7, Plt Count 150, MPV 8.4, Neut % (Auto) 12.5 L, Lymph % (Auto) 27.4, [place] % (Auto) 56.4 H, Eos % (Auto) 2.7, Baso % (Auto) 0.9, Neut # (Auto) 1.2 L, Lymph # (Auto) 2.7, [place] # (Auto) 5.5 H, Eos # (Auto) 0.3, Baso # (Auto) 0.1 02/18/21
[2021-02-18 08:52] LABS: Eosinophils % 2 % (0-3); Hypochromasia 1+; Lymphocytes % 32 % (10-50); Microcytosis 1+; Monocytes % 3 % (2-9); Neutrophils % 63 % (42-76); Platelet Estimate Normal; Total Cells Counted 100
[2021-02-18 09:28] VITALS: PULSE 71
--- NOTE | 2021-02-18 14:34 | PC.NURSE ---
PT IS SITTING UP IN THE CHAIR. ALERT AND ORIENTED X4. PT HAS BEEN AMBULATING TO THE BATHROOM WITH WALKER AND STANDBY ASSIST. PT HAS HAD MULTIPLE LOOSE/BRIGHT RED STOOLS THIS SHIFT. USING THE URINAL TO VOID. SCATTERED BRUISING NOTED. DRYNESS/DISCOLORATION/SCALY NOTED TO BLE. LUNG SOUNDS CLEAR. ABDOMEN SOFT/NON TENDER WITH ACTIVE BOWEL SOUNDS. VSS. TOLERATING CLEAR LIQUIDS. WILL CONTINUE TO MONITOR
[2021-02-18 16:00] VITALS: BP 120/84; PULSE 64; RESP 19; TEMP 36.6; O2SAT 99
[2021-02-18 19:51] VITALS: BP 137/60; PULSE 71; RESP 19; TEMP 36.8; O2SAT 95
[2021-02-19] VITALS (12 sets, daily range): BP systolic 104–130; BP diastolic 44–63; PULSE 64–73; RESP 17–18; TEMP 36.4–36.8; O2SAT 93–99; BMI 41.7; BMI 41.8
--- NOTE | 2021-02-19 04:36 | PC.NURSE ---
shift summary pts lung sounds are clear with sats maintained at 98% or above on 2L via NC, with a rate ranging from 16-18. pt is alert and oriented X4. pt uses bedside urinal urine is clear, and yellow in color. pt has attempted to have a BM once tonight but was unsuccessful. pt denies any pain, nausea, or vomiting.
--- NOTE | 2021-02-19 07:17 | P.PN_ITS ---
Subjective Narrative: Patient without complaints. No further bleeding. Progress Note: A&P (1) GI bleed Status: Acute (2) Atrial fibrillation Status: Acute (3) [facility] current use of anticoagulant Status: Acute (4) Coronary artery disease Status: Acute (5) Diabetes mellitus type 2 in obese Status: Acute Assessment and Plan for All Diagnoses:: Check PT/INR. If within reasonable limits may plan for EGD later today. If unremarkable and patient is able to continue to hold Coumadin may plan for early outpatient colonoscopy. Exam Vital signs and Labs for Last 24 Hours: Temp Pulse Resp BP Pulse Ox 97.6 F 71 17 125/61 99 02/19/21 04:00 02/19/21 04:00 02/19/21 04:00 02/19/21 04:00 02/19/21 04:00 Laboratory Results - last 24 hr 02/17/21 19:25: Blood Type O Negative, Antibody Screen Negative 02/18/21 07:03: WBC 9.7, RBC 4.90, Hgb 12.7 L, Hct 40.8 L, MCV 83.3, MCH 25.9 L, MCHC 31.1 L, RDW 15.7, Plt Count 150, MPV 8.4, Neut % (Auto) 12.5 L, Lymph % (Auto) 27.4, [place] % (Auto) 56.4 H, Eos % (Auto) 2.7, Baso % (Auto) 0.9, Neut # (Auto) 1.2 L, Lymph # (Auto) 2.7, [place] # (Auto) 5.5 H, Eos # (Auto) 0.3, Baso # (Auto) 0.1, Total Counted 100, Neutrophils % (Manual) 63, Lymphocytes % (Manual) 32, Monocytes % (Manual) 3, Eosinophils % (Manual) 2, Platelet Estimate Normal, Hypochromasia 1+, Microcytosis 1+ 02/18/21 07:03: PT 23.2 H, INR 2.08 H 02/18/21 07:03: Sodium 139, Potassium 4.3, Chloride 106, Carbon Dioxide 27, Anion Gap 10.3, BUN 22 H D, Creatinine 0.80, Estimated Creat Clear 57, Estimated GFR 93, Est GFR ( Amer) 113 D, Glucose 98, Calcium 9.0, Total Bilirubin 0.8, AST 27, ALT 18, Alkaline Phosphatase 83, Total Protein 6.5, Albumin 3.7, Globulin 2.8, Albumin/Globulin Ratio 1.3 I & O for Last 24 hours: Intake & Output 02/16/21 02/17/21 02/18/21 02/19/21 11:59 11:59 11:59 11:59 Intake Total 1962 / 1962 840 / 840 Output Total 925 / 925 2200 / 2200 Balance 1038 / 1038 -1360 / -1360 Weight 298 lb 276 lb 5 oz 275 lb 3 oz - *Routine Abdominal Exam Present: soft
--- NOTE | 2021-02-19 07:50 | HMH.ACPN2 ---
Internal Medicine - PN: Subj *Date: 02/19/21 *Time: 07:50 Interval history: Patient without complaints. He has not passed any more blood. Exam Vital signs and Labs for Last 24 Hours: Temp Pulse Resp BP Pulse Ox 97.6 F 71 17 125/61 99 02/19/21 04:00 02/19/21 04:00 02/19/21 04:00 02/19/21 04:00 02/19/21 04:00 Laboratory Results - last 24 hr 02/17/21 19:25: Blood Type O Negative, Antibody Screen Negative 02/18/21 07:03: Total Counted 100, Neutrophils % (Manual) 63, Lymphocytes % (Manual) 32, Monocytes % (Manual) 3, Eosinophils % (Manual) 2, Platelet Estimate Normal, Hypochromasia 1+, Microcytosis 1+ I & O for Last 24 hours: Intake & Output 02/16/21 02/17/21 02/18/21 02/19/21 11:59 11:59 11:59 11:59 Intake Total 1962 / 1962 840 / 840 Output Total 925 / 925 2200 / 2200 Balance 1038 / 1038 -1360 / -1360 Weight 298 lb 276 lb 5 oz 275 lb 3 oz - Constitutional no acute distress - *Routine Abdominal Exam Present: soft, normoactive bowel sounds. Absent: tenderness Assessment and Plan (1) GI bleed Status: Acute Category: Medical Code(s): K92.2 - Gastrointestinal hemorrhage, unspecified (2) Atrial fibrillation Status: Acute Category: Medical Code(s): I48.91 - Unspecified atrial fibrillation (3) halfway current use of anticoagulant Status: Acute Category: Medical Code(s): Z79.01 - director long term care (current) use of anticoagulants (4) Coronary artery disease Status: Acute Category: Medical Code(s): I25.10 - Atherosclerotic heart disease of [place] coronary artery without angina pectoris (5) Diabetes mellitus type 2 in obese Status: Acute Category: Medical Code(s): E11.69 - Type 2 diabetes mellitus with other specified complication; E66.9 - Obesity, unspecified - Assessment and plan all Dx Assessment and Plan for all problems:: 1. EGD today by Dr. Phillips. CBC, INR pending
[2021-02-19 08:30] LABS: Basophils # 0.1 K/mm3 (0-0.2); Basophils % 0.8 % (0.1-2.0); Eosinophils # 0.2 K/mm3 (0.0-0.4); Eosinophils % 2.2 % (0.1-12.0); Hematocrit 37.4 % (42.0-52.0); Hemoglobin 11.7 g/dL (14.1-18.0); Mean Corpuscular HGB Conc 31.2 g/dL (31.8-35.4); Mean Corpuscular Hemoglobin 26.2 pg (27.0-31.2); Mean Corpuscular Volume 84.1 fl (80-94); Mean Platelet Volume 8.4 fl (7.4-10.4); Monocytes # 6.3 K/mm3 (0.1-1.0); Monocytes % 63.3 % (1.7-9.3); Neutrophils # 0.4 K/mm3 (1.8-7.8); Platelet Count 144 K/mm3 (142-424); Red Blood Count 4.45 M/mm3 (4.60-6.20); Red Cell Distribution Width 15.8 % (11.5-17.5)
[2021-02-19 08:31] LABS: Neutrophils % 3.7 % (37.0-80.0)
[2021-02-19 08:32] LABS: MANUAL DIFFERENTIAL MANUAL DIFFERENTIAL (MANUAL DIFF)
[2021-02-19 09:02] LABS: INR 1.39 (0.9-1.1)
[2021-02-19 09:05] LABS: Eosinophils % 1 % (0-3); Lymphocytes % 16 % (10-50); Monocytes % 2 % (2-9); Neutrophils % 81 % (42-76); Platelet Estimate Normal; RBC Morphology Normal; Total Cells Counted 100
[2021-02-19 14:15] LABS: POC Glucose,Bedside 108 (70-110)
--- NOTE | 2021-02-19 15:43 | P.PCN_ITS ---
- Procedure: Date: 02/19/21 Patient Date of :: 1940 Procedure Performed:: Esophagogastroduodenoscopy with biopsy Indications:: Patient is an 80-year-old male from [place] on warfarin anticoagulation therapy. He presented on 02/17/2021 with rectal bleeding experienced after he had the urge to defecate. He presented to the emergency department. He was hemodynamically stable. He was admitted for inpatient management. Patient's coagulation profile was allowed to correct. Once his coagulation profile corrected his bleeding had stopped. Given the potential for upper GI source and elevated BUN out of proportion to creatinine plan was made for upper endoscopy. Performing Provider:: Arpan Phillips MD Referring Provider:: Bud Hernandez MD Sedation:: MAC sedation Procedure:: Patient was taken to endoscopy procedure room. He was positioned in a lateral decubitus position. Adequate intravenous sedation was achieved with anesthesia titration of propofol. Olympus endoscope was inserted via the oropharynx and advanced through the esophagus. Overall esophagus appeared relatively unremarkable. Gastroesophageal junction was encountered at approximately 37 cm from the incisors. Stomach was cannulated and insufflated. Retroflexion revealed a very small tiny hiatal hernia. There is some diffuse moderate nonerosive gastritis. There was a nonbleeding AVM within the antrum. Pylorus was traversed. Duodenal bulb second and third portion of the duodenum appeared unremarkable. Endoscope was withdrawn into the stomach. Gastric mucosal biopsies obtained for CLOtest for H. pylori. Stomach was desufflated and the endoscope was withdrawn. Findings:: Diffuse moderate nonerosive gastritis Nonbleeding AVM Tiny hiatal hernia Recommendations:: No obvious source on upper endoscopy for GI blood loss. Patient has not shown any clinical bleeding since coagulation profile has been allowed to normalize. Hemoglobin has been relatively stable at 13 on admission and 11.7 today. Would advocate colonoscopy in the near future. This can be arranged to be done in a few days as an outpatient potentially. Complications:: None immediate Estimated blood obtained (mL): 1
--- NOTE | 2021-02-19 19:42 | PC.NURSE ---
PT WAS D/C AT 1940
--- NOTE | 2021-02-20 07:14 | HMH.DCSUM ---
General - General Admission date:: 02/17/21 Discharge date: 02/19/21 HPI HPI: 80-year-old male with history of previous GI bleed 10 years ago from bleeding polyp according to his daughter presented to the emergency department after an episode of large volume of blood in his stool.. Patient was not anemic in the emergency department and had normal vital signs. He did not have any abdominal pain. Patient's last colonoscopy was approximately 10 years ago when he had a prior GI bleed. Patient had maroon-colored stool. Dr. Phillips was contacted by the ER physician recommended admission and observation. Patient has been admitted. Subsequently repeat CBC is unchanged. He has not had any further evidence of bleeding at this time. Patient takes warfarin for atrial fibrillation Hospital Course Hospital Course: Patient was admitted. H&H was followed with serial CBCs and remained stable. Patient was given vitamin K to reverse his anticoagulant. Once his INR became subtherapeutic and allowed for intervention patient underwent endoscopy without findings. Outpatient colonoscopy will be arranged. Blood in bowel movements resolved while patient was hospitalized. Patient will follow-up for outpatient colonoscopy with Dr. Phillips. 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 Patient's warfarin has been discontinued at discharge Objective Vital signs: Temp Pulse Resp BP Pulse Ox 98 F 67 18 126/47 L 98 02/19/21 18:18 02/19/21 18:18 02/19/21 18:18 02/19/21 18:18 02/19/21 18:18 Results Labs on day of discharge: Labs from last 24 hours 02/19/21 02/19/21 02/19/21 08:53 08:15 08:15 WBC 10.0 RBC 4.45 L Hgb 11.7 L Hct 37.4 L MCV 84.1 MCH 26.2 L MCHC 31.2 L RDW 15.8 Plt Count 144 MPV 8.4 Neut % (Auto) 3.7 L Lymph % (Auto) 30.0 [place] % (Auto) 63.3 H Eos % (Auto) 2.2 Baso % (Auto) 0.8 Neut # (Auto) 0.4 L* Lymph # (Auto) 3.0 [place] # (Auto) 6.3 H Eos # (Auto) 0.2 Baso # (Auto) 0.1 Total Counted 100 Neutrophils % (Manual) 81 H Lymphocytes % (Manual) 16 Monocytes % (Manual) 2 Eosinophils % (Manual) 1 Platelet Estimate Normal RBC Morphology Normal PT 16.0 H INR 1.39 H POC Glucose 108 DS: Diagnosis - Discharge Diagnosis (1) GI bleed Status: Acute (2) Atrial fibrillation Status: Acute (3) residential current use of anticoagulant Status: Acute (4) Coronary artery disease Status: Acute (5) Diabetes mellitus type 2 in obese Status: Acute Discharge Plan - Patient Discharge Instructions Patient Instructions: DI for Atrial Fibrillation, DI for Gastrointestinal Bleeding, DI for Warfarin Therapy - Follow up Plan Follow up with: Arpan Phillips MD [Staff Physician] - 02/23/21 6:30 am (Colonoscopy scheduled for MondayFebruary 23 be at registration at 6:30am. Please get your covid test done MondayFebruary 22. Your prep was called into [facility], you can pick it up anytime. You will start that on MondayFebruary 22 as well, follow the directions on the box and if you have any questions call Dr. Marshall office at [phone] ) Disposition: Home, Self-[facility] Medications: Home Medications Medication Instructions Recorded Confirmed Type Atorvastatin Calcium [Lipitor 40mg 40 mg PO HS 02/17/21 02/17/21 History Tab] Digoxin [Digoxin 0.125mg Tablet] 125 mcg PO DAILY 02/17/21 02/17/21 History Finasteride [Proscar] 5 mg PO DAILY 02/17/21 02/17/21 History Metformin HCl [Metformin 1000mg 1,000 mg PO BID 02/17/21 02/17/21 History Tablets] Metoprolol Succinate [Metoprolol 50 mg PO DAILY 02/17/21 02/17/21 History Succinate 50mg Tablet*] Omeprazole [Omeprazole 40mg 40 mg PO DAILY 02/17/21 02/17/21 History Capsule] Pioglitazone HCl 30 mg PO DAILY 02/17/21 02/17/21 History [id number]/Sod Sulf,Bicarb,Cl/KCl 240 ml PO Q10M #
== END 2021-02-19 19:40 | disposition home or self-care (01) ==
LOC: ER 10:18 → 2ND 11:16
PROVIDERS: Surgery; Admitting Provider Family Medicine; Emergency Provider Emergency Medicine; PCP Nurse Practitioner Family; Visit Provider Family Medicine
PROC: 0DJ08ZZ Inspection of Upper Intestinal Tract, Via Natural or Artificial Opening Endoscopic (ICD-10-PCS; CPT 43235; principal; 2021-02-19 15:00)
DX: K29.71 Gastritis, unspecified, with bleeding (principal); Z79.84 Long term (current) use of oral hypoglycemic drugs; Z87.891 Personal history of nicotine dependence; I48.91 Unspecified atrial fibrillation; Z85.828 Personal history of other malignant neoplasm of skin; Z95.0 Presence of cardiac pacemaker; Z68.42 Body mass index [BMI] 45.0-49.9, adult; E66.9 Obesity, unspecified; E78.5 Hyperlipidemia, unspecified; Z95.1 Presence of aortocoronary bypass graft; I25.2 Old myocardial infarction; E11.51 Type 2 diabetes mellitus with diabetic peripheral angiopathy without gangrene; M19.90 Unspecified osteoarthritis, unspecified site; Q27.33 Arteriovenous malformation of digestive system vessel; K44.9 Diaphragmatic hernia without obstruction or gangrene; Z79.01 Long term (current) use of anticoagulants; R79.1 Abnormal coagulation profile
CPT/HCPCS: 43239; 36415; 80053; 80162; 81001; 82272; 82962; 85007; 85025; 85610; 86850; 87581; 87633; 87798; 88305; 99284; G0328; G0378

== ENCOUNTER → 2021-02-22 16:37 | Outpatient (CLI) | payer MEDICARE, SELFPAY ==
[2021-02-22 20:37] LABS: Coronavirus 19 IgG Antibody Positive (Negative); Coronavirus 19 IgM Antibody Negative (Negative)
== END ==
PROVIDERS: PCP Nurse Practitioner Family; Visit Provider Surgery
DX: Z01.812 Encounter for preprocedural laboratory examination (principal); Z20.822 Contact with and (suspected) exposure to COVID-19; Z12.11 Encounter for screening for malignant neoplasm of colon; Z86.010 Personal history of colon polyps
CPT/HCPCS: 86328

== ENCOUNTER 2021-02-23 06:26 | Day surgery (SDC) | payer MEDICARE, SELFPAY ==
[2021-02-22 09:03] VITALS: BMI 39.2
[2021-02-23 06:42] VITALS: BP 149/64; PULSE 70; RESP 20; TEMP 36.1; O2SAT 98
[2021-02-23 07:11] VITALS: O2SAT 98
[2021-02-23 07:28] LABS: POC Glucose,Bedside 95 (70-110)
--- NOTE | 2021-02-23 08:02 | HMH.SCOPE ---
- Procedure: Date: 02/23/21 Patient Date of :: 1940 Procedure Performed:: Total colonoscopy to terminal ileum with biopsy and polypectomy using biopsy forceps and snare Indications:: Patient is an 80-year-old male from [place] on warfarin anticoagulation therapy. He presented on 02/17/2021 with rectal bleeding experienced after he had the urge to defecate. He presented to the emergency department. He was hemodynamically stable. He was admitted for inpatient management. Patient's coagulation profile was allowed to correct. Once his coagulation profile corrected his bleeding had stopped. He underwent upper endoscopy as an inpatient. This was relatively unremarkable. Patient was discharged home with early outpatient follow-up for colonoscopy. He underwent bowel preparation. Performing Provider:: Arpan Phillips MD Referring Provider:: Jennie Rao Sedation:: MAC sedation Procedure:: Patient was taken to endoscopy procedure room. He was positioned in a lateral decubitus position. Adequate intravenous achieved with anesthesia titration of propofol. Digital examination was performed which was unremarkable. Variable stiffness Olympus colonoscope was inserted via the anus. With some minor difficulty it was advanced to the cecum. Colonic preparation was fair as there was a significant amount of particulate stool and undigested vegetable debris and matter. However with thorough irrigation fair visualization was achieved. Colonoscope was advanced a short distance into the ileocecal valve which was unremarkable. Within the cecum there was a focal area of minor erythema which was biopsied. There was a possible polyp in the periappendiceal location, likely lymphoid aggregate, this was biopsied as cecal polyp. The distal transverse colon there is a minor mucosal irregularity removed with cold biopsy forceps and labeled distal transverse possible polyp. In the sigmoid colon there was a sessile small adenomatous appearing polyp removed with cold cutting snare. In the proximal rectum there was an adenomatous sessile polyp which was removed with hot snare. Retroflexion revealed no evidence of any pathologic internal hemorrhoids. Please note that he had multiple very large mouth diverticuli in the sigmoid colon. None of this appeared to be inflamed or showing signs of bleeding. Colonoscope was withdrawn. Findings:: Fair preparation with particulate stool and retained undigested vegetable matter and debris Multiple large mouth significant diverticulosis of the left colon Minor mucosal irregularity in the cecum, biopsied Possible cecal polyp, likely lymphoid aggregate, biopsied and Sessile sigmoid polyp removed with cold cutting snare Rectal polyp removed with hot snare Recommendations:: Source of bleeding was likely diverticular. Tentatively recommend repeat colonoscopy 2 or 3 years given the fair preparation pending the pathology Complications:: None immediate Estimated blood obtained (mL): 2
[2021-02-23 08:05] VITALS: BP 116/67; PULSE 70; RESP 16; TEMP 36.3; O2SAT 99
[2021-02-23 08:15] VITALS: BP 134/75; PULSE 69; RESP 16; TEMP 36.3; O2SAT 99
--- NOTE | 2021-02-23 08:23 | P.PN_ITS ---
[facility] Anesthesia Checklist - Patient Identification Patient Identification: Arm Band, Family - Structural Data Admitted From: Home Planned Operative Procedure/s: Colonoscopy Consent for Planned Operative Procedure(s) Verified: Yes Verified Documents: Surgical Consent, History and Physical - Airway Assessment C-Spine Mobility Assessed: Yes TMJ Mobility Assessed: Yes Dentition: Edentulous - Neurological Assessment Level of Consciousness: Awake, Alert - Anesthesia Plan Anesthesia Risk discussed: Yes Anesthesia Plan: Verified ASA Class: III Anesthesia Type: MAC [facility] History Medical History: Reports:: Atrial Fibrillation, Cancer, Diabetes Mellitus Type 2, Hyperlipidemia, Hypertension, Internal Pacemaker, Myocardial Infarction, Peripheral Artery Disease, Peripheral Vascular Disease Denies:: Diabetes Mellitus Type 1, MRSA, Seizures *Have you ever received a pneumonia vaccine?: No *Have you received a flu vaccine this season?: No Other Medical History: Reports: Arthritis, Cataracts (Removed) Anesthesia experience/problems:: None Other Surgeries: Yes: CABG, Cardiac Catheterization, Colonoscopy, Open Heart Surgery, Pacemaker, Other (knee surgery) Amputation: No Fractures: Yes - *Social History Last grade of school completed: High school graduate Smoking Status: Former smoker # Packs/Day (cigarettes): 1 Alcohol Intake: never Substance Use Type: denies use *Occupational Status:: disabled Housing: house Household Members: spouse *Travel in the last 8 weeks: None Family Hx:: No significant family history
[2021-02-23 08:25] VITALS: BP 133/66; PULSE 69; RESP 18; TEMP 36.3; O2SAT 97
[2021-02-23 08:54] VITALS: BP 126/94; PULSE 71; RESP 18; TEMP 36.3; O2SAT 98
== END 2021-02-23 08:54 | disposition home or self-care (01) ==
PROVIDERS: PCP Nurse Practitioner Family; Visit Provider Surgery
PROC: 0DJD8ZZ Inspection of Lower Intestinal Tract, Via Natural or Artificial Opening Endoscopic (ICD-10-PCS; CPT 45380; principal; 2021-02-23 07:30)
DX: K57.30 Diverticulosis of large intestine without perforation or abscess without bleeding (principal); K63.9 Disease of intestine, unspecified; K63.5 Polyp of colon; K62.1 Rectal polyp; Z79.01 Long term (current) use of anticoagulants; E11.9 Type 2 diabetes mellitus without complications; I48.91 Unspecified atrial fibrillation; E78.5 Hyperlipidemia, unspecified; I10 Essential (primary) hypertension; I25.2 Old myocardial infarction; Z95.0 Presence of cardiac pacemaker; Z85.9 Personal history of malignant neoplasm, unspecified; I73.9 Peripheral vascular disease, unspecified
CPT/HCPCS: 45380; 45385; 82962; 88305

== ENCOUNTER 2021-03-27 14:12 | Observation (INO) | payer MEDICARE, SELFPAY ==
[2021-03-27] VITALS (14 sets, daily range): BP systolic 117–152; BP diastolic 44–77; PULSE 69–74; RESP 17–28; TEMP 37.2–37.6; O2SAT 91–100; BMI 39.0; BMI 41.9
--- NOTE | 2021-03-27 14:31 | XR_ITS ---
PROCEDURE INFORMATION: Exam: XR Chest Exam date and time: 03/27/2021 2:31 PM Age: 81 years old Clinical indication: Shortness of breath; Prior surgery; Surgery date: 6+ months; Surgery type: Pacemaker, open heart; Additional info: SOB TECHNIQUE: Imaging protocol: XR of the chest. Views: 1 view. COMPARISON: No relevant prior exams. FINDINGS: Tubes, catheters and devices: Sternal wires are present. Pacemaker with the generator on the left. Lungs: Unremarkable. No consolidation. Pleural spaces: Unremarkable. No pleural effusion. No pneumothorax. Heart/Mediastinum: Unremarkable. No cardiomegaly. Bones/joints: Unremarkable. IMPRESSION: No acute cardiopulmonary disease.
[2021-03-27 14:39] LABS: Microscopic, Urine URINE MICROSCOPIC (MICROSCOPIC)
--- NOTE | 2021-03-27 14:39 | ECG_ITS ---
APPROVED REPORT Exam: Resting ECG HR:70 bpm ECG Measurements Heart Rate 70 AXES QRSd 168 QRS 83 QT 424 T 184 QTc 457 Conclusion Electronic ventricular pacemaker Electronically signed by : Bud Belcher, 03/28/2021 16:38:28
[2021-03-27 14:43] LABS: Appearance,Urine CLOUDY (Clear); Bilirubin,Urine Negative (Negative); Blood, Urine 3+ (Negative); Color,Urine YELLOW (Yellow); Glucose,Urine (UA) Negative (Negative); Ketones,Urine Negative (Negative); Leukocyte Esterase,Urine 2+ (Negative); Nitrate,Urine POSITIVE (Negative); PH,Urine 5.5 (5.0-8.5); Protein,Urine 1+ (Negative); Specific Gravity, Urine 1.025 (1.005-1.030); Urobilinogen,Urine 0.2 EU/dl (0.2)
[2021-03-27 14:45] LABS: Basophils # 0.1 K/mm3 (0-0.2); Basophils % 0.4 % (0.1-2.0); Eosinophils # 0.1 K/mm3 (0.0-0.4); Eosinophils % 0.7 % (0.1-12.0); Hematocrit 36.3 % (42.0-52.0); Hemoglobin 10.5 g/dL (14.1-18.0); Lymphocytes # 3.5 K/mm3 (0.7-4.5); Mean Corpuscular HGB Conc 28.9 g/dL (31.8-35.4); Mean Corpuscular Volume 79.5 fl (80-94); Mean Platelet Volume 7.4 fl (7.4-10.4); Monocytes # 9.7 K/mm3 (0.1-1.0); Monocytes % 55.4 % (1.7-9.3); Neutrophils # 4.1 K/mm3 (1.8-7.8); Neutrophils % 23.5 % (37.0-80.0); Platelet Count 223 K/mm3 (142-424); Red Blood Count 4.57 M/mm3 (4.60-6.20); Red Cell Distribution Width 15.4 % (11.5-17.5); White Blood Count 17.6 K/mm3 (4.8-10.8)
--- NOTE | 2021-03-27 14:45 | HMH.EDGENADL ---
ED Disposition Clinical Impression: Encephalopathy, Weakness Urinary tract infection Qualifiers: Urinary tract infection type: acute cystitis Hematuria presence: without hematuria Qualified Code(s): N30.00 - Acute cystitis without hematuria Disposition: Admitted As Inpatient Condition on Discharge: Good Instructions: DI for Urinary Tract Infection (UTI), DI for Urinary Tract Infection in Children Referrals: Provider,Referral, [Referring] - - Critical Care Critical Care Time: No Attestation: On 03/27/21, the high probability of a clinically significant, sudden or life threatening deterioration of the following system(s) required my full and direct attention, intervention and personal management. The time I documented below is in addition to time spent performing reported procedures but includes the following listed in this critical care notation. Medical Decision Making - Medical Records Medical records reviewed: Yes: I reviewed the patient's medical records. - Aron Inquiry Pt receiving controlled substance: No Vital Signs: 03/27/21 14:12 03/27/21 15:00 03/27/21 15:15 Temperature 99.5 F Temperature Source Oral Pulse Rate 69 71 Pulse Rate [Left Radial] 70 Respiratory Rate 18 21 Blood Pressure 152/63 H 150/63 H Blood Pressure [Right Arm] 145/57 H Blood Pressure Mean 82 Blood Pressure Mean [Right Arm] 86 Blood Pressure Source [Right Arm] Automatic Cuff Blood Pressure Position [Right Arm] Sitting 02 Sat by Pulse Oximetry 94 L 100 95 Oxygen Delivery Method Room Air - Lab Data Lab Results 03/27/21 14:20: Urine Color Yellow, Urine Appearance Cloudy, Urine pH 5.5, Ur Specific [place] 1.025, Urine Protein 1+, Urine Glucose (UA) Negative, Urine Ketones Negative, Urine Blood 3+, Urine Nitrate Positive, Urine Bilirubin Negative, Urine Urobilinogen 0.2, Ur Leukocyte Esterase 2+ A, Urine RBC 20-50, Urine WBC Tntc, Ur Squamous Epith Cells Occasional, Urine Bacteria 3+ 03/27/21 14:20: WBC 17.6 H, RBC 4.57 L, Hgb 10.5 L, Hct 36.3 L, MCV 79.5 L, MCH 23.0 L, MCHC 28.9 L, RDW 15.4, Plt Count 223, MPV 7.4, Neut % (Auto) 23.5 L, Lymph % (Auto) 20.0, [place] % (Auto) 55.4 H, Eos % (Auto) 0.7, Baso % (Auto) 0.4, Neut # (Auto) 4.1, Lymph # (Auto) 3.5, [place] # (Auto) 9.7 H, Eos # (Auto) 0.1, Baso # (Auto) 0.1, Total Counted 100, Neutrophils % (Manual) 90 H, Lymphocytes % (Manual) 4 L, Atypical Lymphs % 1.0, Monocytes % (Manual) 4, Eosinophils % (Manual) 1, Platelet Estimate Normal, Hypochromasia 1+, Microcytosis 1+ 03/27/21 14:20: Sodium 135 L, Potassium 4.0, Chloride 102, Carbon Dioxide 25, Anion Gap 12.0, BUN 22 H, Creatinine 1.00, Estimated Creat Clear 101, Estimated GFR 72, Est GFR ( Amer) 87, Glucose 130 H, Calcium 9.0, Total Bilirubin 1.1, AST 21, ALT 16, Alkaline Phosphatase 91, Troponin I 0.03, NT-Pro-B Natriuret Pep 2490 H, Total Protein 6.8, Albumin 3.8, Globulin 3.0, Albumin/Globulin Ratio 1.3 Result diagrams: 03/27/21 14:20 03/27/21 14:20 Orders (Tests/Meds): ED MEDICATIONS Discontinued Medications Generic Name Dose Route Start Last Admin Trade Name Freq PRN Reason Stop Dose Admin Albuterol/Ipratropium 3 ml 03/27/21 14:39 03/27/21 14:59 Ipratropium/Albuterol 3 Ml Neb IH 03/27/21 14:40 3 ml ONCE ONE Administration Lactated Ringer's 500 mls @ 999 mls/hr 03/27/21 14:45 03/27/21 14:48 Lactated Ringer's 1000 Ml Bag IV 03/27/21 15:15 999 mls/hr .Q31M JODI Administration Trimethoprim/Sulfamethoxazole 1 each 03/27/21 14:59 03/27/21 15:25 Sulfa/Trimethoprim 1 Tablet PO 03/27/21 15:00 1 each ONCE ONE Administration Protocol ORDERS Category Date Time Status Troponin I Q3H Lab 03/27/21 17:45 Ordered Troponin I Q3H Lab 03/27/21 20:45 Ordered Urine Culture Stat Micro 03/27/21 14:20 Received ECG Request by /Nse Stat Y 03/27/21 14:31 Ordered Medical Decision Narrative: On initial assessment this is an 81-year-old male with complicated
[2021-03-27 14:55] LABS: Bacteria,Urine 3+ /lpf; MANUAL DIFFERENTIAL MANUAL DIFFERENTIAL (MANUAL DIFF); RBC,Urine 20-50 #/hpf (0-3); Squamous Epithelial Cell,Urine Occasional #/hpf (0-5); WBC,Urine TNTC #/hpf (0-3)
[2021-03-27 15:04] LABS: Eosinophils % 1 % (0-3); Lymphocytes % 4 % (10-50); Monocytes % 4 % (2-9); Neutrophils % 90 % (42-76); Platelet Estimate Normal; Total Cells Counted 100
[2021-03-27 15:05] LABS: Hypochromasia 1+; Microcytosis 1+
[2021-03-27 15:09] LABS: Alanine Aminotransferase 16 U/L (12-78); Albumin Level 3.8 g/dl (3.5-5.0); Albumin/Globulin Ratio 1.3 (1.1-1.8); Alkaline Phosphatase 91 U/L (38-126); Aspartate Amino Transferase 21 U/L (17-59); Bilirubin,Total 1.1 mg/dl (0.2-1.3); Blood Urea Nitrogen 22 mg/dl (9-20); Carbon Dioxide 25 mmol/L (22.0-30.0); Chloride 102 mmol/L (98-107); Creatinine Clearance Estimated 101 mL/min (50-200); Estimated Glomerular Filt Rate 72 ml/min (>60); GFR (African American) 87 ML/MIN (>60); Glucose 130 mg/dl (74-100); Sodium 135 mmol/L (136-145); Total Protein,Serum 6.8 g/dl (6.3-8.2)
[2021-03-27 15:18] LABS: NT Pro Brain Natriuretic Pep. 2490 pg/mL (0-450)
[2021-03-27 15:21] LABS: Troponin I 0.03 ng/ml (0.00-0.034)
--- NOTE | 2021-03-27 16:12 | PC.NURSE ---
service doc paged.
--- NOTE | 2021-03-27 17:21 | PC.NURSE ---
PATIENT REPORTS HIS MED LIST IS UP TO DATE FROM LAST RECENT ADMISSION. PT DOES NOT HAVE A MED LIST TO COMPARE
[2021-03-27 18:08] LABS: Troponin I 0.05 ng/ml (0.00-0.034)
--- NOTE | 2021-03-27 19:31 | PC.NURSE ---
REPORT GIVEN RED RN ON 2ND FLOOR AT THIS TIME. RED NOTIFIED THAT WE ARE NOT WAITING ON COVID SWAB TO RESULT PRIOR TO ARRIVAL.
--- NOTE | 2021-03-27 19:51 | PC.NURSE ---
patient up to floor via stretcher.
[2021-03-27 21:44] LABS: Troponin I 0.04 ng/ml (0.00-0.034)
[2021-03-27 21:46] LABS: POC Glucose,Bedside 120 (70-110)
[2021-03-27 23:05] LABS: Lactic Acid 1.5 mmol/L (0.7-2.1)
[2021-03-28] VITALS (11 sets, daily range): BP systolic 108–158; BP diastolic 57–70; PULSE 70–74; RESP 16–25; TEMP 36.8–38.5; O2SAT 91–100; BMI 42.0
--- NOTE | 2021-03-28 03:51 | PC.NURSE ---
Pt has slept at intervals this shift. Has not c/o any pain. Pt has urinated frequently with small amounts of urine each time. He has stress incontinence. Total urine output is 650 ml thus far. Urine is dark yellow and cloudy. Purulent at times. Scrotum is edematous. VSS. Pt has remained on RA this shift. Pt uses O2 2L NC prn HS. Lungs are diminished. BS active. Pt has scarring and scabs to BLE. No other concerns. Call light within reach. Safety measures in place. Will continue to monitor.
[2021-03-28 05:07] LABS: POC Glucose,Bedside 121 (70-110)
[2021-03-28 09:02] LABS: Basophils # 0.1 K/mm3 (0-0.2); Basophils % 0.6 % (0.1-2.0); Eosinophils # 0.1 K/mm3 (0.0-0.4); Eosinophils % 0.5 % (0.1-12.0); Hematocrit 34.4 % (42.0-52.0); Hemoglobin 10.1 g/dL (14.1-18.0); Lymphocytes # 2.6 K/mm3 (0.7-4.5); Lymphocytes % 22.8 % (10-50); Mean Corpuscular HGB Conc 29.3 g/dL (31.8-35.4); Mean Corpuscular Hemoglobin 23.3 pg (27.0-31.2); Mean Corpuscular Volume 79.4 fl (80-94); Monocytes # 6.3 K/mm3 (0.1-1.0); Monocytes % 55.5 % (1.7-9.3); Neutrophils # 2.3 K/mm3 (1.8-7.8); Neutrophils % 20.7 % (37.0-80.0); Platelet Count 213 K/mm3 (142-424); Red Blood Count 4.33 M/mm3 (4.60-6.20); Red Cell Distribution Width 15.6 % (11.5-17.5); White Blood Count 11.3 K/mm3 (4.8-10.8)
--- NOTE | 2021-03-28 09:06 | HMH.HP ---
*Admission Date: 03/27/21 *Chief complaint: Confusion, weakness, UTI with failed outpatient therapy *History of present illness: 81-year-old white male with history of diabetes, chronic obesity and history of CHF who has been under the care of nurse practitioner service in [place] over the past several years who apparently has had evidence of urinary retention and urinary tract infection over the past couple of weeks and has been on Bactrim. His daughter reports that he has been increasingly confused, extremely weak, has had leg cellulitis and she has been very disappointed with the local [facility] about lack of therapy, evaluation of the cellulitis, etc. She brought into the hospital here yesterday and he was found to have evidence of UTI, confusion and elevated BNP. He was admitted to hospital for further diagnostic testing, intravenous antibiotics and evaluation of his ongoing status. [facility] History I have reviewed the patient's past medical history: Yes Medical History: Reports:: Arrhythmia, Atrial Fibrillation, Cancer (skin), Congestive Heart Failure, Diabetes Mellitus Type 2, Heart Murmur, Hyperlipidemia, Hypertension, Internal Pacemaker, Myocardial Infarction, Peripheral Artery Disease, Peripheral Vascular Disease Denies:: Diabetes Mellitus Type 1, MRSA, Seizures *Have you ever received a pneumonia vaccine?: Yes *Have you received a flu vaccine this season?: Yes Other Medical History: Reports: Arthritis, Cataracts Other Surgeries: Yes: CABG, Cardiac Catheterization, Cardiac Surgery, Colonoscopy, EGD, Open Heart Surgery, Pacemaker, Other (knee surgery) Amputation: No Fractures: Yes - *Social History Smoking Status: Former smoker Tobacco Type: cigarettes # Packs/Day (cigarettes): 1 Alcohol Intake: never Substance Use Type: denies use *Occupational Status:: retired, disabled Housing: house Household Members: spouse *Travel in the last 8 weeks: None Family Hx:: Asthma, Cancer, Diabetes, Heart Attack, Hyperlipidemia, Hypertension Review of Systems - Review of Systems Review of systems:: pertinent systems reviewed and negative unless documented below Patient is pleasant but confused, states that he just feels tired. Specifically denies chest pain but does agree that he is a little bit short of breath. Denies abdominal pain or leg pain. Meds Home Medications Medication Instructions Recorded Confirmed Type Atorvastatin Calcium [Lipitor 40mg 40 mg PO HS 02/17/21 03/27/21 History Tab] Digoxin [Digoxin 0.125mg Tablet] 125 mcg PO DAILY 02/17/21 03/27/21 History Finasteride [Proscar] 5 mg PO DAILY 02/17/21 03/27/21 History Metformin HCl [Metformin 1000mg 1,000 mg PO BID 02/17/21 03/27/21 History Tablets] Metoprolol Succinate [Metoprolol 50 mg PO DAILY 02/17/21 03/27/21 History Succinate 50mg Tablet*] Omeprazole [Omeprazole 40mg 40 mg PO DAILY 02/17/21 03/27/21 History Capsule] Pioglitazone HCl 30 mg PO DAILY 02/17/21 03/27/21 History Allergies Allergy/AdvReac Type Severity Reaction Status Date / Time No Known Allergies Allergy Verified 03/08/21 09:53 Exam Vital signs and Labs for Last 24 Hours: Temp Pulse Resp BP Pulse Ox 99.6 F 70 24 146/58 H 94 L 03/28/21 07:42 03/28/21 07:42 03/28/21 07:42 03/28/21 07:42 03/28/21 07:42 Laboratory Results - last 24 hr 03/27/21 14:20: Urine Color Yellow, Urine Appearance Cloudy, Urine pH 5.5, Ur Specific [place] 1.025, Urine Protein 1+, Urine Glucose (UA) Negative, Urine Ketones Negative, Urine Blood 3+, Urine Nitrate Positive, Urine Bilirubin Negative, Urine Urobilinogen 0.2, Ur Leukocyte Esterase 2+ A, Urine RBC 20-50, Urine WBC Tntc, Ur Squamous Epith Cells Occasional, Urine Bacteria 3+ 03/27/21 14:20: WBC 17.6 H, RBC 4.57 L, Hgb 10.5 L, Hct 36.3 L, MCV 79.5 L, MCH 23.0 L, MCHC 28.9 L, RDW 15.4, Plt Count 223, MPV 7.4, Neut % (Auto) 23.5 L, Lymph % (Auto) 20.0, [place] % (Auto) 55.4 H, Eos % (Auto) 0.7, Baso % (Auto) 0.4, [place]
[2021-03-28 09:09] LABS: Anion Gap 9.9 mEq/L (5-15); Blood Urea Nitrogen 22 mg/dl (9-20); Calcium 8.7 mg/dl (8.4-10.2); Carbon Dioxide 26 mmol/L (22.0-30.0); Chloride 101 mmol/L (98-107); Creatinine Clearance Estimated 56 mL/min (50-200); Estimated Glomerular Filt Rate 72 ml/min (>60); GFR (African American) 87 ML/MIN (>60); Glucose 216 mg/dl (74-100); Potassium 3.9 mmoL/L (3.5-5.1); Sodium 133 mmol/L (136-145)
[2021-03-28 09:12] LABS: MANUAL DIFFERENTIAL MANUAL DIFFERENTIAL (MANUAL DIFF)
[2021-03-28 09:41] LABS: Lymphocytes % 11 % (10-50); Microcytosis 1+; Monocytes % 4 % (2-9); Neutrophils % 84 % (42-76); Platelet Estimate Normal; Spherocytes 1+; Total Cells Counted 100
[2021-03-28 12:11] LABS: POC Glucose,Bedside 171 (70-110)
--- NOTE | 2021-03-28 12:40 | P.CONPHA_ITS ---
[facility] Pharmacy VTE Monitoring - Patient Demographics Admission date: 03/27/21 Report Date: 03/28/21 Time: 12:40 Allergies/Adverse Reactions: Patient Allergies No Known Allergies Allergy (Verified 03/08/21 09:53) Height: 1.75 m Weight: 128.905 kg Patient Problems: Current Active Problems Atrial fibrillation (Acute) Coronary artery disease (Acute) Diabetes mellitus type 2 in obese (Acute) Urinary tract infection (Acute) Encephalopathy (Acute) Weakness (Acute) - VTE Risk Labs: VTE Related Lab Results Hgb 10.1 g/dL (14.1-18.0) L 03/28/21 08:30 Hct 34.4 % (42.0-52.0) L 03/28/21 08:30 Plt Count 213 K/mm3 (142-424) 03/28/21 08:30 BUN 22 mg/dl (9-20) H 03/28/21 08:30 Creatinine 1.00 mg/dl (0.66-1.25) 03/28/21 08:30 Estimated Creat Clear 56 mL/min (50-200) 03/28/21 08:30 VTE Risk Level: Low Risk - Prophylaxis VTE Prophylaxis Ordered?: Yes Types of VTE Prophylaxis: TEDS Knee High Location of Applied Device: Bilateral Lower Extremeties
--- NOTE | 2021-03-28 12:41 | HMH.PHAINT ---
HOME MEDICATIONS RECONCILED FROM RX BOTTLES. MAY RESTART ASPIRIN, HOLDING DIGOXIN PER DR KINNEY.
[2021-03-28 13:38] LABS: Appearance,Urine/Cath CLOUDY (Clear); Bilirubin,Cath Negative (Negative); Blood, Urine/Cath 2+ (Negative); Color,Urine/Cath YELLOW (Yellow); Glucose,Urine/Cath (UA) Negative (Negative); Ketones,Urine/Cath Negative (Negative); Leukocyte Esterase,Cath 3+ (Negative); Microscopic,Cath URINE MICROSCOPIC (MICROSCOPIC); Nitrate,Cath POSITIVE (Negative); PH,Urine/Cath 5.5 (5.0-8.5); Protein,Urine/Cath TRACE (Negative); Urobilinogen,Cath 0.2 EU/dl (0.2)
[2021-03-28 14:13] LABS: Bacteria,Urine/Cath 2+ /lpf; Mucus,Urine/Cath 1+ /lpf; Squamous Epithelial Ur./Cath Occasional #/hpf (0-5); WBC,Urine/Cath TNTC #/hpf (0-3)
[2021-03-28 17:17] LABS: POC Glucose,Bedside 163 (70-110)
--- NOTE | 2021-03-28 17:21 | PC.NURSE ---
Pt did run a temp of 101.3, treated per MAR w/ tylenol. Recheck temp noted to be 98.8. Has sat up in chair majority of shift. Remains on 2 L O2 per nasal cannula. Pt reported being winded after activity this AM, but has since then denied being SOA. Lungs diminished throughout. Abdomen soft, non-tender w/ active BS in all quads. No BM this shift. [place] cath to drain @ bedisde. Urine noted to be drk yellow & milky . Has had over 2 L of urine out this shift. Pt does get up w/ a walker and ambulated back and forth to recliner w/ assistance of staff. Has sat up in chair majority of day. Call dillon w/in reach. No needs @ this time. Family updated on plan of care.
[2021-03-28 20:22] LABS: POC Glucose,Bedside 153 (70-110)
[2021-03-29] VITALS (9 sets, daily range): BP systolic 121–150; BP diastolic 56–72; PULSE 60–80; RESP 18–20; TEMP 36.8–38.1; O2SAT 92–99; BMI 41.8
--- NOTE | 2021-03-29 03:36 | PC.NURSE ---
No acute changes noted. Pt has slept at intervals this shift. Has not c/o any discomfort. Was up to chair early in shift. VSS. Pt remains on 2L O2 NC. Lungs are diminished t/o with scattered wheezing noted. BS active. F/C draining to bedside with cloudy, eulalio urine. total urine output 1300 ml. Call light within reach. Safety measures in place. Will continue to monitor.
[2021-03-29 05:48] LABS: POC Glucose,Bedside 195 (70-110)
[2021-03-29 06:27] LABS: Basophils # 0.1 K/mm3 (0-0.2); Basophils % 0.6 % (0.1-2.0); Eosinophils % 0.3 % (0.1-12.0); Hematocrit 34.7 % (42.0-52.0); Lymphocytes # 3.1 K/mm3 (0.7-4.5); Lymphocytes % 30.1 % (10-50); Mean Corpuscular HGB Conc 28.8 g/dL (31.8-35.4); Mean Corpuscular Hemoglobin 22.5 pg (27.0-31.2); Mean Corpuscular Volume 78.2 fl (80-94); Mean Platelet Volume 7.1 fl (7.4-10.4); Monocytes # 5.4 K/mm3 (0.1-1.0); Monocytes % 52.2 % (1.7-9.3); Neutrophils # 1.7 K/mm3 (1.8-7.8); Neutrophils % 16.8 % (37.0-80.0); Platelet Count 204 K/mm3 (142-424); Red Blood Count 4.44 M/mm3 (4.60-6.20); Red Cell Distribution Width 15.5 % (11.5-17.5); White Blood Count 10.3 K/mm3 (4.8-10.8)
[2021-03-29 06:39] LABS: Anion Gap 8.8 mEq/L (5-15); Blood Urea Nitrogen 20 mg/dl (9-20); Calcium 8.4 mg/dl (8.4-10.2); Carbon Dioxide 27 mmol/L (22.0-30.0); Chloride 99 mmol/L (98-107); Creatinine Clearance Estimated 56 mL/min (50-200); Estimated Glomerular Filt Rate 81 ml/min (>60); GFR (African American) 98 ML/MIN (>60); Glucose 126 mg/dl (74-100); Potassium 3.8 mmoL/L (3.5-5.1); Sodium 131 mmol/L (136-145)
[2021-03-29 06:42] LABS: MANUAL DIFFERENTIAL MANUAL DIFFERENTIAL (MANUAL DIFF)
--- NOTE | 2021-03-29 08:15 | HMH.ACPN2 ---
Internal Medicine - PN: Subj *Date: 03/29/21 *Time: 08:15 Interval history: Patient is pleasant, talkative, ate breakfast well. Daughter reports that he is better but still continues to be a little bit confused. He is much more talkative than yesterday. Reviewed culture data, labs and orders. Exam Vital signs and Labs for Last 24 Hours: Temp Pulse Resp BP Pulse Ox 98.3 F 60 20 124/72 99 03/29/21 03:53 03/29/21 04:00 03/29/21 03:53 03/29/21 03:53 03/29/21 03:53 Laboratory Results - last 24 hr 03/27/21 14:20: Urine Color Yellow, Urine Appearance Cloudy, Urine pH 5.5, Ur Specific [place] 1.025, Urine Protein 1+, Urine Glucose (UA) Negative, Urine Ketones Negative, Urine Blood 3+, Urine Nitrate Positive, Urine Bilirubin Negative, Urine Urobilinogen 0.2, Ur Leukocyte Esterase 2+ A, Urine RBC 20-50, Urine WBC Tntc, Ur Squamous Epith Cells Occasional, Urine Bacteria 3+ 03/28/21 08:30: WBC 11.3 H D, RBC 4.33 L, Hgb 10.1 L, Hct 34.4 L, MCV 79.4 L, MCH 23.3 L, MCHC 29.3 L, RDW 15.6, Plt Count 213, MPV 8.0, Neut % (Auto) 20.7 L, Lymph % (Auto) 22.8, [place] % (Auto) 55.5 H, Eos % (Auto) 0.5, Baso % (Auto) 0.6, Neut # (Auto) 2.3, Lymph # (Auto) 2.6, [place] # (Auto) 6.3 H, Eos # (Auto) 0.1, Baso # (Auto) 0.1, Total Counted 100, Neutrophils % (Manual) 84 H, Lymphocytes % (Manual) 11, Atypical Lymphs % 1.0, Monocytes % (Manual) 4, Platelet Estimate Normal, Microcytosis 1+, Spherocytes 1+ 03/28/21 08:30: Sodium 133 L, Potassium 3.9, Chloride 101, Carbon Dioxide 26, Anion Gap 9.9, BUN 22 H, Creatinine 1.00, Estimated Creat Clear 56, Estimated GFR 72, Est GFR ( Amer) 87, Glucose 216 H D, Calcium 8.7 03/28/21 10:00: Urine Color Yellow, Urine Appearance Cloudy, Urine pH 5.5, Ur Specific [place] 1.020, Urine Protein Trace, Urine Glucose (UA) Negative, Urine Ketones Negative, Urine Blood 2+, Urine Nitrate Positive, Urine Bilirubin Negative, Urine Urobilinogen 0.2, Ur Leukocyte Esterase 3+ A, Urine RBC 10-20, Urine WBC Tntc A, Ur Squamous Epith Cells Occasional, Urine Bacteria 2+ A 03/28/21 11:39: POC Glucose 171 H 03/28/21 15:50: POC Glucose 163 H 03/28/21 20:12: POC Glucose 153 H 03/29/21 05:36: POC Glucose 195 H 03/29/21 06:24: WBC 10.3, RBC 4.44 L, Hgb 10.0 L, Hct 34.7 L, MCV 78.2 L, MCH 22.5 L, MCHC 28.8 L, RDW 15.5, Plt Count 204, MPV 7.1 L, Neut % (Auto) 16.8 L, Lymph % (Auto) 30.1, [place] % (Auto) 52.2 H, Eos % (Auto) 0.3, Baso % (Auto) 0.6, Neut # (Auto) 1.7 L, Lymph # (Auto) 3.1, [place] # (Auto) 5.4 H, Eos # (Auto) 0.0, Baso # (Auto) 0.1 03/29/21 06:24: Sodium 131 L, Potassium 3.8, Chloride 99, Carbon Dioxide 27, Anion Gap 8.8, BUN 20, Creatinine 0.90, Estimated Creat Clear 56, Estimated GFR 81, Est GFR ( Amer) 98, Glucose 126 H D, Calcium 8.4 I & O for Last 24 hours: Intake & Output 03/26/21 03/27/21 03/28/21 03/29/21 11:59 11:59 11:59 11:59 Intake Total 1170 / 1170 480 / 480 Output Total 2725 / 2725 3300 / 3300 Balance -1555 / -1555 -2820 / -2820 Weight 284 lb 3 oz 282 lb 9 oz Microbiology Reports for the Last 24 Hours: Microbiology 03/27/21 14:20 Urine,Clean Catch Urine Culture - Final Escherichia coli Narrative: Pleasant, talkative, oriented x2. A little fuzzy about the date. Lungs have good air movement, minimal upper airway wheezing but no rhonchi or crackles. Heart rate regular. No gallops or murmurs. Abdomen soft. Trace ankle edema but wearing compression stockings. Neurologic exam as above. No focal deficits. Oropharynx clear. Assessment and Plan (1) Atrial fibrillation Status: Acute Category: Medical Code(s): I48.91 - Unspecified atrial fibrillation (2) Coronary artery disease Status: Acute Category: Medical Code(s): I25.10 - Atherosclerotic heart disease of [place] coronary artery without angina pectoris (3) Diabetes mellitus type 2 in obese Status: Acute Category: Medical Code(s): E11.69 - Type 2 diabetes mellitus with othe
--- NOTE | 2021-03-29 09:03 | CA_ITS ---
APPROVED REPORT EXAM: Comprehensive 2D, Doppler, and color-flow Echocardiogram [employer]: MARIYA Trammell, RVS Ht: 5 ft 8 in Wt: 284lbs BSA: 2.37 HR: 72 bpm BP: 000/00 mmHg Rhythm: Atrial Fibrillation Indications: confusion, UTI, Afib, CAD-CABG, old PA, murmur Echo Enhancing Agent Comments: Technically difficult exam due to chest circumference. Patient scanned in chair 2D Dimensions IVSd 1.31 cm LVEF (Visual) 49.30 % PWd 1.11 cm LA Volume 118.00 mL LVDd 4.62 cm LA Volume Index 49.80 mL/m2 (M/F) 16-34 LVDs 3.47 cm Aortic Root 3.64 cm Left Atrium 4.83 cm LVOT 2.05 cm (M/F) 1.5-2.5 M-Mode Dimensions TAPSE 1.29 (<1.7) LV Diastology E Decel Time 330.00 (160-240 msec) E/A Ratio 3.43 MED E' 5.50 (< 7 cm/sec) MED A' 4.10 cm/s E'/MED E' Ratio 30.44 (>14) LAT E' 12.40 (<10 cm/sec) LAT A' 4.90 cm/s E/LAT E' Ratio 13.50 (>14) Aortic Valve LVOT Max 89.00 (70-110 cm/s) LVOT VTI 17.95 cm AoV Peak Juan. 306.00 (50-130 cm/s) AO Peak GR. 37.60 mmHg AO Mean GR. 23.60 (<5 mmHg) AO VTI 64.23 (18-25 cm) KAREEM (VTI) 0.92 (2.5-4.5 cm2) Mitral Valve MV A Velocity 49.00 (40-130 cm/s) E/A Ratio 3.43 MV Decel. Time 330.00 (160-240 ms) MV PHT 90.00 ms Tricuspid Valve TR P. Velocity 211.00 cm/s RAP Estimate 10.00 mmHg RVSP 27.90 mmHg Left Ventricle Technically difficult and poor study because of the patient factors and poor acoustic windows, repeat study with Definity contrast is recommended if clinically indicated. Left atrium is mildly enlarged, left ventricle is mildly dilated, there is reduced left ventricular systolic function, visually estimated ejection fraction approximately 30 to 35%, there is marked hypokinesis involving mid to distal septum and anterior apical wall, endocardial surfaces are very poorly visualized, diastolic parameters are inconclusive. Right Ventricle Right atrium and right ventricle are normal size and contractility. Aortic Valve Aortic valve is thickened and calcified with severe restriction in the leaflet mobility, the mean gradient across valve is 26 mmHg valve area is 0.9 cm??? likely represents low-flow low gradient severe aortic stenosis, there is no significant aortic insufficiency. Mitral Valve Mitral valve leaflets are thickened and calcified with restriction in the leaflet mobility, mean gradient across mitral valve is 5.6 mmHg, which likely represents moderate calcific mitral stenosis, the valve area is not calculated in the study. There is mild mitral regurgitation. Tricuspid Valve Tricuspid valve leaflets are minimally thickened, there is mild tricuspid regurgitation, tricuspid regurgitation jet velocity is inadequate for calculation of the right ventricular systolic pressure. Pulmonic Valve Pulmonic valve is poorly visualized. Great Vessels Aortic root is normal size. Pericardium No significant pericardial effusion noted. Conclusion 1. Technically very difficult and poor study because of the patient factors and poor acoustic windows. Repeat study with Definity contrast is recommended if clinically indicated. 2. Mildly enlarged left atrium, mildly dilated left ventricle, visually estimated ejection fraction approximately 30 to 35% as described above. Diastolic parameters are inconclusive. 3. Heavily thickened and calcified aortic valve likely severe aortic stenosis, valve area is calculated in the study 0.9 cm???, however the me
--- NOTE | 2021-03-29 09:41 | HMH.OTEV ---
OT Inpatient Evaluation Rehab OT IP Evaluation Start: 03/28/21 09:03 Freq: ONCE Status: Complete Protocol: Document 03/29/21 09:33 [facility] (Rec: 03/29/21 09:41 [facility] [id number]) Rehab OT IP Assessment Subjective History Pt oriented x 3 on arrival. Pt agreeable to engage in therapy evaluation. Daughter at bedside. Pt was admitted via ED on 03/27/21 due to Encephalopathy and weakness. Pt has a past medical history of A-fib, CA, DM type 2, hyperlipidemia, HTN, NC, PAD, and PVD. Pt reports he lives at home with his . His requires a lot of care because she had dementia. Daughter reports he requires assistance with all ADLS except feeding. She has to assist with dressing and bathing. Her and her family do all of the cleaning and cooking as well. Pt does use a walker during ambulation. Subjective I can do it. Objective Patient Orientation Person,Place,Birthday Upper Extremity Gross ROM WFL Bed Mobility bed mobility-scooting,bed mobility - supine/sit,bed mobility - rolling Assist Level Minimal x 2 (25% assist) Transfer Training Sit/Stand Transfer Assist Level Minimal x 2 (25% assist) Bathing Ability Assistance x1 Rehab OT IP prob,goals,plan Problems Date of Evaluation: 03/29/21 OT IP Problems Bed Mobility,Transfers,Gait, Balance,Self care,Safety Rehab Potential Rehab Potential Good Equipment Needs Assistive Devices Rolling / Wheeled Walker Plan OT intervention Plan Bed Mobility,Transfers,Gait, Balance,Self care,Safety, Therapeutic Exercise OT Plan Frequency BID Duration LOS Discharge Goals Bed Mobility Ability Assistance x1 Sit to Stand Chair Transfer Ability Minimal x 1 (25% assist) Chair Transfer Ability Minimal x 1 (25% assist) Chair Transfer Technique Sit to/from Ambulatory Chair Transfer Assistive Devices Rolling Walker Feeding Ability Assist with Tray Set Up Lower Body Dress
--- NOTE | 2021-03-29 09:49 | SW/DCPLANNER ---
SENT REFERRAL TO [facility] FOR [facility] SKILLED STAY PER FAMILY REQUEST..PATIENT HAS A HUMANA/MCR AND WILL NEED AN AUTHORIZATION FROM THE INSURANCE FOR APPROVAL... I HAVE SENT INFORMATION TO THE FACILITY TO SEND IN... WAITING TO HEAR BACK, IF APPROVED HE WILL DISCHARGE THERE [facility] PENDING NO SETBACKS....
--- NOTE | 2021-03-29 09:59 | HMH.PTEV ---
Physical Therapy Evaluation Rehab PT IP Evaluation Start: 03/28/21 09:03 Freq: ONCE Status: Active Protocol: Document 03/29/21 08:00 LISY (Rec: 03/29/21 09:59 [facility] [id number]) Subjective/History History History 81-year-old white male with history of diabetes, chronic obesity and history of CHF who has been under the care of nurse practitioner service in [place] over the past several years who apparently has had evidence of urinary retention and urinary tract infection over the past couple of weeks and has been on Bactrim. His daughter reports that he has been increasingly confused, extremely weak, has had leg cellulitis and she has been very disappointed with the local home health agency about lack of therapy, evaluation of the cellulitis, etc. She brought into the hospital here yesterday and he was found to have evidence of UTI, confusion and elevated BNP. copied from H&P Subjective Subjective Pt has no complaints - pt's daughter is cutting department supervisor wound care specialist and reports pt is better today - close to baseline Rehab PT IP Eval Objective Appearance Patient Behavior Appropriate Patient Orientation Person,Place,Time Difficulty following instructions none Speech Pattern Appropriate Ambulation Patient Able to Ambulate Yes Ambulation Observation IP General Gait Pattern Observation Wide Based Gait,Shuffling Step Ambulation Distance (feet) 25 Ambulation Assistive Device Rolling Walker Ambulation Ability Contact Guard/Hand Hold Balance Ability to Arise Unable Sitting Balance Steady, safe Standing Balance Steady, wide stance Dynamic Sitting Balance Ability Fair Dynamic Standing Balance Ability Poor Transfers Chair Transfer Ability Contact Guard/Hand Hold Sit to Stand Chair Transfer Ability Minimal x 2 (25% assist) ROM All Extremities PT ROM Status WFL MMT All Extremities PT MMT ABN Abnormal MMT Grade 3-/5 Rehab PT IP pr
[2021-03-29 11:25] LABS: POC Glucose,Bedside 134 (70-110)
--- NOTE | 2021-03-29 12:29 | PC.NURSE ---
PT IS SITTING UP IN THE CHAIR. ALERT AND ORIENTED X4. PT STATES HE FEELS BETTER TODAY. FAMILY REQUESTED THAT PT'S COMPRESSION STOCKINGS BE LEFT OFF FOR THE DAY BECAUSE HE HAD THEM ON ALL DAY YESTERDAY AND ALL NIGHT LAST NIGHT. ACCORDING TO PT'S DAUGHTER HE ONLY WEARS STOCKINGS DURING THE DAY AT HOME AND THEY ARE REMOVED AT NIGHTS. PT HAD A SHOWER AND BED CHANGE THIS SHIFT. AMBULATES WITH THE WALKER AND 2 ASSIST, PT IS VERY UNSTEADY. LUNG SOUNDS DIMINISHED. ABDOMEN SOFT/LARGE/NON TENDER WITH ACTIVE BOWEL SOUNDS. VSS. WILL CONTINUE TO MONITOR.
[2021-03-29 15:30] LABS: Lymphocytes % 2 % (10-50); Monocytes % 5 % (2-9); Neutrophils % 92 % (42-76); Nucleated Red Blood Cells 1; Total Cells Counted 100
[2021-03-29 15:32] LABS: Hypochromasia 1+; Platelet Estimate Normal
[2021-03-29 15:33] LABS: Microcytosis 1+
[2021-03-29 16:10] LABS: POC Glucose,Bedside 132 (70-110)
[2021-03-29 21:11] LABS: POC Glucose,Bedside 193 (70-110)
[2021-03-30] VITALS: BP 143/69; PULSE 71; PULSE 80; RESP 16; TEMP 37.9; O2SAT 95
--- NOTE | 2021-03-30 03:08 | PC.NURSE ---
A&OX4. PT TOLERATING RA WELL. PT HAS BEEN IN [employer] THIS EVENING. PT REQUIRING X2 ASSIST TO REPOSITION IN BED. PT EATING, WATCHING TV, AND SLEEPING MAJORITY OF SHIFT. F/C PRESENT, DRAINING DARK YELLOW URINE. PT HAVING ADEQUATE U/O. PT HAD 100.3 TEMP AT 0000. TX WITH TYLENOL PER MAR. TEMP NOW 98.2. NO C/O PAIN. VSS WILL CONTINUE TO MONITOR.
[2021-03-30 03:18] VITALS: BP 131/67; PULSE 69; RESP 18; TEMP 36.8; O2SAT 95
[2021-03-30 04:00] VITALS: PULSE 70
[2021-03-30 05:03] VITALS: BMI 42.5
[2021-03-30 05:32] LABS: POC Glucose,Bedside 121 (70-110)
[2021-03-30 07:01] LABS: Basophils # 0.1 K/mm3 (0-0.2); Basophils % 0.9 % (0.1-2.0); Eosinophils # 0.2 K/mm3 (0.0-0.4); Hematocrit 32.5 % (42.0-52.0); Hemoglobin 10.2 g/dL (14.1-18.0); Lymphocytes # 3.2 K/mm3 (0.7-4.5); Lymphocytes % 36.9 % (10-50); Mean Corpuscular HGB Conc 31.4 g/dL (31.8-35.4); Mean Corpuscular Hemoglobin 23.6 pg (27.0-31.2); Mean Corpuscular Volume 75.4 fl (80-94); Mean Platelet Volume 8.1 fl (7.4-10.4); Monocytes # 4.1 K/mm3 (0.1-1.0); Monocytes % 47.6 % (1.7-9.3); Neutrophils # 1.1 K/mm3 (1.8-7.8); Platelet Count 178 K/mm3 (142-424); Red Blood Count 4.31 M/mm3 (4.60-6.20); Red Cell Distribution Width 15.9 % (11.5-17.5); White Blood Count 8.6 K/mm3 (4.8-10.8)
[2021-03-30 07:10] LABS: Alanine Aminotransferase 33 U/L (12-78); Albumin Level 3.2 g/dl (3.5-5.0); Albumin/Globulin Ratio 1.1 (1.1-1.8); Alkaline Phosphatase 83 U/L (38-126); Anion Gap 4.6 mEq/L (5-15); Aspartate Amino Transferase 45 U/L (17-59); Bilirubin,Total 0.7 mg/dl (0.2-1.3); Blood Urea Nitrogen 22 mg/dl (9-20); Calcium 8.2 mg/dl (8.4-10.2); Carbon Dioxide 32 mmol/L (22.0-30.0); Chloride 101 mmol/L (98-107); Creatinine Clearance Estimated 56 mL/min (50-200); Estimated Glomerular Filt Rate 81 ml/min (>60); GFR (African American) 98 ML/MIN (>60); Globulin 2.8 g/dL (1.3-3.2); Glucose 123 mg/dl (74-100); Potassium 3.6 mmoL/L (3.5-5.1); Sodium 134 mmol/L (136-145)
[2021-03-30 07:29] LABS: MANUAL DIFFERENTIAL MANUAL DIFFERENTIAL (MANUAL DIFF); Neutrophils % 12.6 % (37.0-80.0)
[2021-03-30 08:00] VITALS: BP 125/54; PULSE 70; PULSE 73; RESP 20; TEMP 37.1; O2SAT 95
--- NOTE | 2021-03-30 09:09 | HMH.ACPN2 ---
Internal Medicine - PN: Subj *Date: 03/30/21 *Time: 09:09 Exam Vital signs and Labs for Last 24 Hours: Temp Pulse Resp BP Pulse Ox 98.8 F 73 20 125/54 L 95 03/30/21 08:00 03/30/21 08:00 03/30/21 08:00 03/30/21 08:00 03/30/21 08:00 Laboratory Results - last 24 hr 03/29/21 06:24: Total Counted 100, Neutrophils % (Manual) 92 H, Band Neutrophils % 1.0, Lymphocytes % (Manual) 2 L, Monocytes % (Manual) 5, Nucleated RBCs 1, Platelet Estimate Normal, Hypochromasia 1+, Microcytosis 1+ 03/29/21 11:06: POC Glucose 134 H 03/29/21 15:44: POC Glucose 132 H 03/29/21 20:43: POC Glucose 193 H 03/30/21 05:19: POC Glucose 121 H 03/30/21 06:21: WBC 8.6, RBC 4.31 L, Hgb 10.2 L, Hct 32.5 L, MCV 75.4 L, MCH 23.6 L, MCHC 31.4 L, RDW 15.9, Plt Count 178, MPV 8.1, Neut % (Auto) 12.6 L, Lymph % (Auto) 36.9, [place] % (Auto) 47.6 H, Eos % (Auto) 2.0, Baso % (Auto) 0.9, Neut # (Auto) 1.1 L, Lymph # (Auto) 3.2, [place] # (Auto) 4.1 H, Eos # (Auto) 0.2, Baso # (Auto) 0.1 03/30/21 06:21: Sodium 134 L, Potassium 3.6, Chloride 101, Carbon Dioxide 32 H, Anion Gap 4.6 L, BUN 22 H, Creatinine 0.90, Estimated Creat Clear 56, Estimated GFR 81, Est GFR ( Amer) 98, Glucose 123 H, Calcium 8.2 L, Total Bilirubin 0.7, AST 45 D, ALT 33 D, Alkaline Phosphatase 83, Total Protein 6.0 L, Albumin 3.2 L, Globulin 2.8, Albumin/Globulin Ratio 1.1 I & O for Last 24 hours: Intake & Output 05/1503/28/21 03/29/21 03/30/21 23:59 23:59 23:59 23:59 Intake Total 1050 / 1050 600 / 600 1660 / 1660 280 / 280 Output Total 350 / 350 5175 / 5175 2960 / 3610 1949 / 1949 Balance 700 / 700 -4575 / -4575 -1300 / -1950 -1670 / -1670 Weight 128.905 kg 128.905 kg 128 kg 130.181 kg Microbiology Reports for the Last 24 Hours: Microbiology 03/27/21 17:30 Blood - Other Blood Culture - Preliminary NO GROWTH AFTER 48 HOURS 03/27/21 17:30 Blood - Other Blood Culture - Preliminary NO GROWTH AFTER 48 HOURS 03/28/21 10:00 Urine,Catheterized Urine Culture - Preliminary NO GROWTH AFTER 24 HOURS 03/27/21 14:20 Urine,Clean Catch Urine Culture - Final Escherichia coli Assessment and Plan (1) Atrial fibrillation Status: Acute Category: Medical Code(s): I48.91 - Unspecified atrial fibrillation (2) Coronary artery disease Status: Acute Category: Medical Code(s): I25.10 - Atherosclerotic heart disease of [place] coronary artery without angina pectoris (3) Diabetes mellitus type 2 in obese Status: Acute Category: Medical Code(s): E11.69 - Type 2 diabetes mellitus with other specified complication; E66.9 - Obesity, unspecified (4) Urinary tract infection Status: Acute Qualifiers: Urinary tract infection type: acute cystitis Hematuria presence: without hematuria Qualified Code(s): N30.00 - Acute cystitis without hematuria Category: Medical Code(s): N39.0 - Urinary tract infection, site not specified (5) Encephalopathy Status: Acute Category: Medical Code(s): G93.40 - Encephalopathy, unspecified (6) Weakness Status: Acute Category: Medical Code(s): R53.1 - Weakness
[2021-03-30 10:30] LABS: Eosinophils % 2 % (0-3); Lymphocytes % 6 % (10-50); Monocytes % 16 % (2-9); Neutrophils % 69 % (42-76); Total Cells Counted 100
[2021-03-30 10:32] LABS: Anisocytosis 2+; Microcytosis 2+; Platelet Estimate Normal
[2021-03-30 10:33] LABS: Hypochromasia 2+
--- NOTE | 2021-03-30 10:35 | SW/DCPLANNER ---
RECEIVED A CALL TODAY THAT PATIENT HAS BEEN APPROVED.. I HAVE NOTIFIED DR HOLCOMB..HE WILL DISCHARGE TO [facility] LATER IN THE DAY...
[2021-03-30 11:17] LABS: POC Glucose,Bedside 176 (70-110)
[2021-03-30 11:37] VITALS: BP 135/61; PULSE 70; RESP 22; TEMP 37.1; O2SAT 96
--- NOTE | 2021-03-30 11:40 | HMH.DCSUM ---
General - General Admission date:: 03/27/21 Discharge date: 03/30/21 HPI HPI: 81-year-old white male with history of diabetes, chronic obesity and history of CHF who has been under the care of nurse practitioner service in [place] over the past several years who apparently has had evidence of urinary retention and urinary tract infection over the past couple of weeks and has been on Bactrim. His daughter reports that he has been increasingly confused, extremely weak, has had leg cellulitis and she has been very disappointed with the local [facility] about lack of therapy, evaluation of the cellulitis, etc. She brought into the hospital here yesterday and he was found to have evidence of UTI, confusion and elevated BNP. He was admitted to hospital for further diagnostic testing, intravenous antibiotics and evaluation of his ongoing status. Hospital Course Hospital Course: 81-year-old male admitted for UTI and volume overload. Has responded well to antibiotic treatment and diuresis. Banegas in place for most of admission due to urinary retention. Urine culture positive for E. coli-pansensitive, continued ceftriaxone during admission. Patient has remained afebrile. Tolerating good p.o. intake. Able to transition to oral antibiotics to continue therapy for total of 10 days. Patient having urinary retention. Indwelling Banegas placed during admission to assist with bladder decompression. Tolerated well. Trial of removal on day of discharge, unfortunately had continued concern for some retention. If not placed by time he was admitted to [facility], please replace and perform 3-day process for removal to address retention. History CHF with A. fib. Echo obtained showing systolic CHF with left ventricular EF 30 to 35%. Patient already has implanted pacer and defibrillator. Remains a poor candidate for anticoagulation at this point because of fall risk. Stopped digoxin and initiated metoprolol with good rate control. Continue aspirin daily. Monitoring for volume overload daily, will consider diuretics once at the custodial if becomes edematous. Diabetes -Initiated on sliding scale insulin during hospitalization. Held Actos and metformin given heart failure and UTI. Pending resolution of UTI, would be a fair candidate to consider SGLT2 therapy for diabetes control. Further adjustments once at the custodial. Physical therapy/Occupational Therapy evaluated the patient. Determined to be a good candidate for skilled care/rehab to assist in improving ambulation with goal of getting back home with ailing . Patient denied fever, chest pain, shortness of breath on day of discharge. No nausea or vomiting. Medically stable for discharge to the custodial. Plan to follow closely. Objective Vital signs: Temp Pulse Resp BP Pulse Ox 98.8 F 70 22 135/61 96 03/30/21 11:37 03/30/21 11:37 03/30/21 11:37 03/30/21 11:37 03/30/21 11:37 no acute distress, obese - *Routine HEENT Exam Head: Present: normocephalic Eye: Present: EOMI, PERRL ENT: Present: mucous membranes moist - *Routine Neck Exam Present: supple - *Routine Respiratory Exam Present: CTA bilaterally, crackles (bilateral bases) - *Routine Cardiovascular Exam Present: irregularly irregular - *Routine Abdominal Exam Present: soft, normoactive bowel sounds. Absent: tenderness - *Routine Extremities Exam Absent: cyanosis, clubbing, edema Comments: stasis dermatitis changes bilaterally - *Routine Skin Exam Present: warm. Absent: rash - *Routine Neurological Exam Present: alert Results Labs on day of discharge: Labs from last 24 hours 03/30/21 03/30/21 03/30/21 11:03 06:21 06:21 WBC 8.6 RBC 4.31 L Hgb 10.2 L Hct 32.5 L MCV 75.4 L MCH 23.6 L MCHC 31.4 L RDW 15.9 Plt Count 178 MPV 8.1 Neut % (Auto) 12.6 L Lymph % (Auto) 36.9 Taney % (Auto)
--- NOTE | 2021-03-30 12:50 | PC.NURSE ---
Called report to MIKE, to [facility]. Also spoke with luis, the daughter and she is going top/u pt and transport. Bladder scanner done and highest amt was greater than 29 ML, other amts were 0 and 4 ml. Pt has voided at least 150 ml since removing love.
--- NOTE | 2021-03-30 19:32 | PC.NURSE ---
Pt's daughter Hailee to p/u home meds.
== END 2021-03-30 13:45 ==
LOC: ER 16:09 → 2ND 16:51
PROVIDERS: Admitting Provider Internal Medicine Adolescent Medicine; Emergency Provider Emergency Medicine; PCP Nurse Practitioner Family; Visit Provider Internal Medicine Adolescent Medicine
DX: N30.01 Acute cystitis with hematuria (principal); E11.9 Type 2 diabetes mellitus without complications; G93.40 Encephalopathy, unspecified; Z95.810 Presence of automatic (implantable) cardiac defibrillator; Z87.891 Personal history of nicotine dependence; M19.90 Unspecified osteoarthritis, unspecified site; Z79.4 Long term (current) use of insulin; Z79.82 Long term (current) use of aspirin; Z68.41 Body mass index [BMI] 40.0-44.9, adult; E87.70 Fluid overload, unspecified; R33.9 Retention of urine, unspecified; B96.20 Unspecified Escherichia coli [E. coli] as the cause of diseases classified elsewhere; I50.20 Unspecified systolic (congestive) heart failure; I48.20 Chronic atrial fibrillation, unspecified
CPT/HCPCS: 36415; 71045; 80048; 80053; 81001; 82962; 83605; 83880; 84484; 85007; 85025; 87040; 87086; 87088; 87186; 93005; 93306; 96365; 97110; 97116; 97162; 97166; 97530; 97535; 99283; G0378; U0003

== ENCOUNTER 2021-05-09 21:39 | Inpatient (IN) | payer MEDICARE, SELFPAY ==
--- NOTE | 2021-05-09 21:36 | ECG_ITS ---
APPROVED REPORT Exam: Resting ECG HR:138 bpm ECG Measurements Heart Rate 138 AXES QRSd 148 QRS 264 QT 212 T 81 QTc 321 Conclusion Undetermined rhythm Right bundle branch block Possible Lateral infarct, age undetermined Inferior infarct, age undetermined Abnormal ECG Electronically signed by : Bud Belcher, 05/10/2021 17:31:59
[2021-05-09 21:38] VITALS: BP 173/67; PULSE 71; RESP 18; TEMP 36.7; O2SAT 96; BMI 42.5
--- NOTE | 2021-05-09 21:44 | XR_ITS ---
PROCEDURE INFORMATION: Exam: XR Chest Exam date and time: 05/09/2021 9:44 PM Age: 81 years old Clinical indication: Shortness of breath; Prior surgery; Surgery date: 6+ months; Surgery type: Pacemaker; Patient HX: SOA, best images possible TECHNIQUE: Imaging protocol: XR of the chest. Views: 1 view. COMPARISON: CR XR CHEST PORTABLE 03/27/2021 3:23 PM FINDINGS: Tubes, catheters and devices: The left chest wall dual lead AICD is unchanged. Lungs: Unremarkable. No consolidation. Pleural spaces: Unremarkable. No pleural effusion. No pneumothorax. Heart/Mediastinum: The heart is enlarged. Bones/joints: Mid sternotomy wires and postoperative changes of CABG re-identified. Moderate degenerative changes of the shoulder joints. IMPRESSION: Cardiomegaly.
[2021-05-09 21:48] LABS: ABG Base Excess -1.2 mmol/L (-2.4-2.3); ABG HCO3 26.4 mmhg (22.0-26.0); ABG Oxygen Saturation 96 % (90-100); ABG PH 7.23 mmol/L (7.35-7.45); ABG PO2 90.1 mmhg (80-100); ABG TCO2 28.3 mmhg (23-27)
[2021-05-09 21:50] LABS: Allen's Test Acceptable; Oxygen 2.5LPM %; Source Left Radial
[2021-05-09 21:52] LABS: ABG PCO2 64.1 mmhg (35.0-45.0)
[2021-05-09 22:01] VITALS: BP 166/69; PULSE 70; RESP 17; O2SAT 94
[2021-05-09 22:01] LABS: Coronavirus 19, PCR Not Detected (NotDetected); Influenza A, PCR Not Detected (NotDetected); Influenza B, PCR Not Detected (NotDetected)
[2021-05-09 22:04] LABS: Basophils # 0.1 K/mm3 (0-0.2); Basophils % 0.4 % (0.1-2.0); Eosinophils # 0.3 K/mm3 (0.0-0.4); Eosinophils % 1.6 % (0.1-12.0); Hematocrit 37.6 % (42.0-52.0); Hemoglobin 11.1 g/dL (14.1-18.0); Lymphocytes # 3.3 K/mm3 (0.7-4.5); Lymphocytes % 17.7 % (10-50); Mean Corpuscular HGB Conc 29.6 g/dL (31.8-35.4); Mean Corpuscular Hemoglobin 22.5 pg (27.0-31.2); Mean Corpuscular Volume 75.9 fl (80-94); Mean Platelet Volume 8.6 fl (7.4-10.4); Monocytes # 12.5 K/mm3 (0.1-1.0); Monocytes % 67.4 % (1.7-9.3); Neutrophils # 2.4 K/mm3 (1.8-7.8); Platelet Count 212 K/mm3 (142-424); Red Blood Count 4.96 M/mm3 (4.60-6.20); Red Cell Distribution Width 16.1 % (11.5-17.5); White Blood Count 18.5 K/mm3 (4.8-10.8)
--- NOTE | 2021-05-09 22:04 | HMH.EDGENADL ---
ED Disposition Clinical Impression: COPD exacerbation Acute and chronic respiratory failure Qualifiers: Respiratory failure complication: hypercapnia Qualified Code(s): J96.22 - Acute and chronic respiratory failure with hypercapnia CHF (congestive heart failure) Qualifiers: Heart failure type: unspecified Heart failure chronicity: chronic Qualified Code(s): I50.9 - Heart failure, unspecified Aortic stenosis Qualifiers: Cardiac valve disease etiology: etiology unspecified Qualified Code(s): I35.0 - Nonrheumatic aortic (valve) stenosis Disposition: Admitted As Inpatient Condition on Discharge: Fair Referrals: Jennie Rao [Primary Care Provider] - - Critical Care Critical Care Time: No Attestation: On 05/09/21, the high probability of a clinically significant, sudden or life threatening deterioration of the following system(s) required my full and direct attention, intervention and personal management. The time I documented below is in addition to time spent performing reported procedures but includes the following listed in this critical care notation. Medical Decision Making - Medical Records Medical records reviewed: Yes: I reviewed the patient's medical records. - Aron Inquiry Pt receiving controlled substance: No Vital Signs: 05/09/21 21:38 05/09/21 22:01 05/09/21 22:31 Temperature 98.0 F Temperature Source Oral Pulse Rate 70 70 Pulse Rate [Right] 71 Respiratory Rate 18 17 18 Blood Pressure 166/69 H 146/69 H Blood Pressure [Right Arm] 173/67 H Blood Pressure Mean [Right Arm] 102 02 Sat by Pulse Oximetry 96 94 L 94 L Oxygen Delivery Method Nasal Cannula Nasal Cannula Nasal Cannula Oxygen Flow Rate (LPM) 3 3 3 05/09/21 23:01 05/09/21 23:30 05/10/21 00:01 Temperature Temperature Source Pulse Rate 71 72 70 Pulse Rate [Right] Respiratory Rate 20 15 14 Blood Pressure 156/59 H 135/60 101/67 L Blood Pressure [Right Arm] Blood Pressure Mean [Right Arm] 02 Sat by Pulse Oximetry 97 97 99 Oxygen Delivery Method Nasal Cannula Oxygen Flow Rate (LPM) 3 - Lab Data Lab Results 05/09/21 21:44: Specimen Source Left radial, O2 % 2.5lpm, ABG pH 7.23 L*, ABG pCO2 64.1 H, ABG pO2 90.1, ABG HCO3 26.4 H, ABG Total CO2 28.3 H, ABG O2 Saturation 96, ABG Base Excess -1.2, Gavin Test Acceptable 05/09/21 21:45: WBC 18.5 H, RBC 4.96, Hgb 11.1 L, Hct 37.6 L, MCV 75.9 L, MCH 22.5 L, MCHC 29.6 L, RDW 16.1, Plt Count 212, MPV 8.6, Neut % (Auto) 12.9 L, Lymph % (Auto) 17.7, Kane % (Auto) 67.4 H, Eos % (Auto) 1.6, Baso % (Auto) 0.4, Neut # (Auto) 2.4, Lymph # (Auto) 3.3, Kane # (Auto) 12.5 H, Eos # (Auto) 0.3, Baso # (Auto) 0.1, Total Counted 100, Neutrophils % (Manual) 89 H, Lymphocytes % (Manual) 5 L, Atypical Lymphs % 2.0, Monocytes % (Manual) 3, Eosinophils % (Manual) 1, Platelet Estimate Normal, Spherocytes 2+, Stomatocytes 1+ 05/09/21 21:45: Sodium 138, Potassium 4.6, Chloride 97 L, Carbon Dioxide 33 H, Anion Gap 12.6, BUN 29 H, Creatinine 0.90, Estimated Creat Clear 56, Estimated GFR 81, Est GFR ( Amer) 98, Glucose 186 H, Calcium 8.7, Total Bilirubin 0.7, AST 22, ALT 15, Alkaline Phosphatase 108, Total Protein 7.3, Albumin 4.1, Globulin 3.2, Albumin/Globulin Ratio 1.3 05/09/21 21:45: Lactate 1.9 05/09/21 21:45: NT-Pro-B Natriuret Pep 1810 H 05/09/21 22:00: SARS-CoV-2 (PCR) Not detected, Influenza A Untype (PCR) Not detected, Influenza Type B (PCR) Not detected Result diagrams: 05/09/21 21:45 05/09/21 21:45 Orders (Tests/Meds): ED MEDICATIONS Discontinued Medications Generic Name Dose Route Start Last Admin Trade Name Freq PRN Reason Stop Dose Admin Furosemide 40 mg 05/09/21 22:32 05/09/21 22:32 Furosemide 40mg/4ml Vial IV 05/09/21 22:33 40 mg ONCE ONE Administration Azithromycin 500 mg/ Sodium 250 mls @ 250 mls/hr 05/09/21 22:15 05/09/21 22:21 Chloride IV 05/09/21 22:16 250 mls/hr ONCE ONE Administration Protocol Ceftriaxone Sodium
[2021-05-09 22:07] LABS: Alanine Aminotransferase 15 U/L (12-78); Albumin Level 4.1 g/dl (3.5-5.0); Albumin/Globulin Ratio 1.3 (1.1-1.8); Alkaline Phosphatase 108 U/L (38-126); Anion Gap 12.6 mEq/L (5-15); Aspartate Amino Transferase 22 U/L (17-59); Bilirubin,Total 0.7 mg/dl (0.2-1.3); Blood Urea Nitrogen 29 mg/dl (9-20); Calcium 8.7 mg/dl (8.4-10.2); Carbon Dioxide 33 mmol/L (22.0-30.0); Chloride 97 mmol/L (98-107); Creatinine Clearance Estimated 56 mL/min (50-200); Estimated Glomerular Filt Rate 81 ml/min (>60); GFR (African American) 98 ML/MIN (>60); Globulin 3.2 g/dL (1.3-3.2); Glucose 186 mg/dl (74-100); Lactic Acid 1.9 mmol/L (0.7-2.1); Neutrophils % 12.9 % (37.0-80.0); Potassium 4.6 mmoL/L (3.5-5.1); Sodium 138 mmol/L (136-145); Total Protein,Serum 7.3 g/dl (6.3-8.2)
[2021-05-09 22:08] LABS: MANUAL DIFFERENTIAL MANUAL DIFFERENTIAL (MANUAL DIFF)
[2021-05-09 22:17] LABS: Eosinophils % 1 % (0-3); Lymphocytes % 5 % (10-50); Monocytes % 3 % (2-9); NT Pro Brain Natriuretic Pep. 1810 pg/mL (0-450); Neutrophils % 89 % (42-76); Platelet Estimate Normal; Spherocytes 2+; Stomatocytes 1+; Total Cells Counted 100
[2021-05-09 22:31] VITALS: BP 146/69; PULSE 70; RESP 18; O2SAT 94
[2021-05-09 23:01] VITALS: BP 156/59; PULSE 71; RESP 20; O2SAT 97
[2021-05-09 23:30] VITALS: BP 135/60; PULSE 72; RESP 15; O2SAT 97
[2021-05-10] VITALS (13 sets, daily range): BP systolic 101–191; BP diastolic 53–79; PULSE 65–78; RESP 14–20; TEMP 36.4–37; O2SAT 88–100; BMI 42.4
--- NOTE | 2021-05-10 00:33 | PC.NURSE ---
paged dr evans @ this time
--- NOTE | 2021-05-10 00:38 | PC.NURSE ---
laya knapp on phone with dr evans
[2021-05-10 00:50] LABS: Microscopic, Urine URINE MICROSCOPIC (MICROSCOPIC)
[2021-05-10 00:51] LABS: Appearance,Urine CLOUDY (Clear); Bilirubin,Urine Negative (Negative); Blood, Urine 3+ (Negative); Color,Urine YELLOW (Yellow); Glucose,Urine (UA) Negative (Negative); Ketones,Urine Negative (Negative); Leukocyte Esterase,Urine TRACE (Negative); Nitrate,Urine Negative (Negative); PH,Urine 5.5 (5.0-8.5); Protein,Urine 1+ (Negative); Specific Gravity, Urine 1.025 (1.005-1.030); Urobilinogen,Urine 0.2 EU/dl (0.2)
[2021-05-10 00:59] LABS: Bacteria,Urine 2+ /lpf; Mucus,Urine 1+ /lpf; RBC,Urine 50-100 #/hpf (0-3); Squamous Epithelial Cell,Urine Occasional #/hpf (0-5)
--- NOTE | 2021-05-10 01:14 | PC.NURSE ---
PT. ARRIVED TO [facility] VIA [facility]ER AT [phone].
--- NOTE | 2021-05-10 04:55 | PC.NURSE ---
Pt is SOB with respiratory distress spoke with RN regarding symptoms and ABG results from ER. This WHARF WORKER recommends BiPAP, RN agrees. RN to call Dr. Martinez for order. Will continue to monitor PT.
--- NOTE | 2021-05-10 05:23 | PC.NURSE ---
0500 lead generation marketing manager paged
--- NOTE | 2021-05-10 06:00 | XR_ITS ---
PROCEDURE INFORMATION: Exam: XR Chest Exam date and time: 05/10/2021 6:00 AM Age: 81 years old Clinical indication: Condition or disease; Other: Chf. . Copd; Additional info: Chf, copd TECHNIQUE: Imaging protocol: XR of the chest. Views: 1 view. COMPARISON: CR XR CHEST PORTABLE 05/09/2021 10:03 PM FINDINGS: Tubes, catheters and devices: There is a left-sided pacemaker in appropriate position. There are sternal wires from a previous sternotomy incision. Lungs: No focal consolidation. No mass. Pleural spaces: No pleural effusion. No pneumothorax. Heart/Mediastinum: The heart is moderately enlarged. Bones/joints: Unremarkable. There is no acute fracture present. IMPRESSION: 1. Moderate cardiomegaly. 2. No acute cardiac or pulmonary process.
--- NOTE | 2021-05-10 07:01 | PC.NURSE ---
3511 paged confectionery laboratory manager no response
--- NOTE | 2021-05-10 07:26 | HMH.PHAVTE ---
[facility] Pharmacy VTE Monitoring - Patient Demographics Admission date: 05/09/21 Report Date: 05/10/21 Time: 07:26 Allergies/Adverse Reactions: Patient Allergies No Known Allergies Allergy (Verified 05/04/21 12:57) Height: 1.73 m Weight: 127.006 kg Patient Problems: Current Active Problems Acute and chronic respiratory failure (Acute) CHF (congestive heart failure) (Acute) COPD exacerbation (Acute) Aortic stenosis (Chronic) - VTE Risk Labs: VTE Related Lab Results Hgb 11.1 g/dL (14.1-18.0) L 05/09/21 21:45 Hct 37.6 % (42.0-52.0) L 05/09/21 21:45 Plt Count 212 K/mm3 (142-424) 05/09/21 21:45 BUN 29 mg/dl (9-20) H 05/09/21 21:45 Creatinine 0.90 mg/dl (0.66-1.25) 05/09/21 21:45 Estimated Creat Clear 56 mL/min (50-200) 05/09/21 21:45 VTE Risk Level: Moderate Risk - Prophylaxis VTE Prophylaxis Ordered?: Yes Types of VTE Prophylaxis: TEDS Knee High, Pharmacological Location of Applied Device: Bilateral Lower Extremeties Pharmacologic Type: Enoxaparin
--- NOTE | 2021-05-10 08:55 | HMH.HP ---
*Admission Date: 05/09/21 *Chief complaint: Shortness of breath *History of present illness: Mr. Hargrove is an 81-year-old male with a history of COPD, CHF, and atrial fibrillation with ejection fraction noted to be 30 to 35%. He has been under the care of a nurse practitioner in [place] over the past several years. He was recently admitted to [facility] on 03/27/2021 and discharged 03/30/2021With a UTI and volume overload. At that time he responded well to antibiotic treatment and diuresis. Following is documentation from the emergency room: .In summary this is an 81-year-old male presenting to the emergency department with cough and chest congestion. Patient clinically stable on arrival. On 3 L by nasal cannula. Oxygen saturations are 92%. Concern for CHF exacerbation, COPD, pneumonia. Will obtain CBC, CMP, VBG, chest x-ray, EKG, troponin profile, BNP. Patient's family members arrived. Provide additional history. Patient was using oxygen only at night until last week. Seems to have a precipitous decline. Now using 2 to 3 L all of the time. Does not have CPAP at night. Seems confused. Unable to care for himself or to activities of daily living. Initial laboratory results remarkable for elevated BNP at 1800. Most recently was around 1999. ABG shows acidosis to 7.23 with Work-up concerning for CHF as well as COPD. Patient receiving Rocephin, azithromycin, methylprednisolone. Given 40 mg IV Lasix. Will admit for further management. General Adult HPI - General Chief complaint: Shortness of Breath/Dyspnea Stated complaint: SOA Time Seen by Provider: 05/09/21 21:44 Mode of Arrival: EMS Limitations: No Limitations Description of Symptoms (Recalled from ER Triage Doc. by RN): EMS reports called out for SOA x 2 days. pt is a hospice pt - History of Present Illness HPI narrative: 81-year-old male presenting to the emergency department with shortness of breath. For the last few days his daughter has noticed worsening cough and chest congestion. He seems to be more confused. Cough is nonproductive. No fevers or chills. Is using oxygen, inhalers. No recent antibiotics or steroids. He has COPD and CHF. He is using 2 L by nasal cannula all of the time. He is on hospice for the last few days for CHF. Patient denies chest pain, abdominal pain, nausea, vomiting. Daughter did stay with the patient during the night. She stated he had an episode with extreme shortness of breath. He did have a breathing treatment after which he did recover. She feels that he is at his normal now although he remains confused. He does know who she is but cannot tell you where he is. He ate fair for breakfast. Laboratory data on admission: CBC with white blood cell count of 18,500. Hemoglobin is 11.1 hematocrit of 37.6. Blood chemistries show sodium of 138 potassium 4.6 renal function is satisfactory. Lactate is 1.9. BNP is 1810. Urine shows 1+ protein and 3+ blood trace of leukoesterase and 2+ bacteria.Chest x-ray reveals cardiomegaly With no acute cardiac or pulmonary process. ABGs on admission show a pH of 7.23 PCO2 of 64.1 PO2 of 90.1 and bicarb of 26.4. [facility] History Medical History: Reports:: Arrhythmia, Atrial Fibrillation, Cancer, Cardiomyopathy, Congestive Heart Failure, Chronic Obstructive Pulmonary Disease (COPD), Coronary Artery Disease, Diabetes Mellitus Type 2, Gastroesophageal Reflux Disease(GERD), Heart Murmur, Hyperlipidemia, Hypertension, Internal Pacemaker, Myocardial Infarction, Peripheral Artery Disease, Peripheral Vascular Disease, Urinary Tract Infection Denies:: Diabetes Mellitus Type 1, MRSA, Seizures *Have you ever received a pneumonia vaccine?: Yes *Have you received a flu vaccine this season?: Yes Other Medical History: Reports: Arthritis, Cataracts Comment:: BPH Other Surgeries: Yes: CABG, Cardiac Catheterization, Cardiac Surgery, Colonoscopy, EGD, Open Heart Surgery, Pacemaker, Other (knee surgery) Amputation: No Fract
--- NOTE | 2021-05-10 09:35 | SW/DCPLANNER ---
Addendum entered by Perla Chen 05/10/21 12:02: Per Hospice nurse (Sima) services have been revoked and patient will transfer to [facility] for a valve replacement. I have informed Harika with [facility] to disregard referral. Patient will transfer once bed is available. Addendum entered by Perla Chen 05/10/21 11:25: Family is interested in placement under Hospice care at this time. Hospice nurse (Sima) is present in patients room and has stated that patients stay is related to Hospice. Family has stated they are interested in placement at [facility] at time of discharge with Hospice. I have spoke with Harika from [facility] and they do have male beds available. Patient information has been faxed to Harika sorto/ [facility]. Original Note: This patient currently resides at home and receives Hospice services. I spoke with Clara sorto/ [facility] to confirm patient receives services and goal care plans will be discussed with patients family and Hospice nurse today. Patient information has been faxed to Clara and she will confirm once reviewed if patients stay is related to Hospice services or not. I will continue to follow up with Clara and patients family. Discharge date is unknown at this time.
--- NOTE | 2021-05-10 09:58 | HMH.PHAINT ---
MEDICATION RECONCILIATION COMPLETED ON PATIENT USING EXTERNAL FILL HISTORY FROM PHARMACY AND PATIENT INTERVIEW. -JEANNIE HATCH, SHERID
[2021-05-10 10:14] LABS: Thyroid Stimulating Hormone 3.15 uIU/mL (0.465-4.68)
--- NOTE | 2021-05-10 12:09 | HMH.CNCARD ---
History of Present Illness Consult date: 05/10/21 Requesting physician: Ashwin Martinez Consult reason: shortness of breath Chief complaint: SOA History of present illness: This is an 81-year-old white gentleman who presented to the emergency department with complaints of shortness of breath. The patient and his family state that his shortness of breath have worsened over the last several days. It was associated with a nonproductive cough and chest congestion. The patient had previously been only using oxygen at nighttime but was having to use his home oxygen more throughout the day. His daughter states that he was getting more confused and just continually declining so she brought him into the emergency department. He is unable to care for himself or complete any activities of daily living on his own. Of note the patient does have a history of COPD, CHF, atrial fibrillation and severe aortic stenosis. The patient was evaluated in cardiology clinic last week and had a discussion about his severe aortic stenosis. At that time the patient and family decided that they were not going to pursue any treatment so they decided to enroll him in hospice. However for the patient severe aortic stenosis a TAVR would significantly improve his symptoms. He denies any chest pain or pressure. He is complaining of shortness of breath. The shortness of breath is at rest and with exertion. It is worse with exertion. It is associated with fatigue, a nonproductive cough, and chest congestion. He denies any fever, chills, nausea, vomiting, diarrhea. He does have PND and orthopnea associated with his shortness of breath. [facility] History I have reviewed the patient's past medical history: Yes Medical History: Reports:: Arrhythmia, Atrial Fibrillation, Cancer, Cardiomyopathy, Congestive Heart Failure, Chronic Obstructive Pulmonary Disease (COPD), Coronary Artery Disease, Diabetes Mellitus Type 2, Gastroesophageal Reflux Disease(GERD), Heart Murmur, Hyperlipidemia, Hypertension, Internal Pacemaker, Myocardial Infarction, Peripheral Artery Disease, Peripheral Vascular Disease, Urinary Tract Infection Denies:: Diabetes Mellitus Type 1, MRSA, Seizures *Have you ever received a pneumonia vaccine?: Yes *Have you received a flu vaccine this season?: Yes Other Medical History: Reports: Arthritis, Cataracts Other Surgeries: Yes: CABG, Cardiac Catheterization, Cardiac Surgery, Colonoscopy, EGD, Open Heart Surgery, Pacemaker, Other (knee surgery) Amputation: No Fractures: Yes - *Social History Last grade of school completed: High school graduate Smoking Status: Former smoker Tobacco Type: cigarettes # Packs/Day (cigarettes): 1 Alcohol Intake: never Substance Use Type: denies use *Occupational Status:: disabled Housing: house Household Members: spouse *Travel in the last 8 weeks: None Family Hx:: Diabetes, Heart Attack Meds Home Medications Medication Instructions Recorded Confirmed Type Omeprazole [Omeprazole 40mg 40 mg PO DAILY 02/17/21 05/09/21 History Capsule] Aspirin [Aspirin 81mg EC Tab] 81 mg PO DAILY 30 Days #30 tab 03/30/21 05/09/21 Rx Atorvastatin Calcium [Lipitor 40mg 40 mg PO HS 30 Days #30 tab 03/30/21 05/09/21 Rx Tab] Finasteride [Proscar] 5 mg PO DAILY 30 Days #30 tab 03/30/21 05/09/21 Rx Ipratropium/Albuterol Sulfate 3 ml IH Q6HP PRN 30 Days #60 03/30/21 05/09/21 Rx [Duoneb 3mL neb] ampul.neb Metformin HCl [Metformin 1000mg 1,000 mg PO BID 30 Days #60 tab 03/30/21 05/09/21 Rx Tablets] Metoprolol Succinate [Metoprolol 50 mg PO DAILY 30 Days #30 tab 03/30/21 05/09/21 Rx Succinate 50mg Tablet*] furosemide 40 mg tablet 40 mg PO DAILY tab 05/04/21 05/09/21 History potassium chloride 20 mEq 20 meq PO DAILY tab 05/04/21 05/09/21 History tablet,extended release(part/cryst) Morphine Sulfate [Roxanol 20mg/mL 0.75 ml PO Q4HP PRN 05/09/21 05/10/21 History 1mL oral soln UDC] Allergies Allergy/AdvReac Type Severit
--- NOTE | 2021-05-10 14:08 | HMH.PULMCON ---
*Admission Date: 05/09/21 *Reason for consult:: COPD exacerbation *History of present illness: Mr. Hargrove is a 81-year-old male greater than [id number] smoking at the diagnosis of COPD currently nebulizer therapy at home also has history of CHF atrial fibrillation was presented to the hospital worsening respiratory failure with productive cough and greenish phlegm. Patient also noted to have severe aortic stenosis for which she was recently made hospice however after recent cardio recommendations patient was being transferred to for possible TAVR. [facility] History Medical History: Reports:: Arrhythmia, Atrial Fibrillation, Cancer, Cardiomyopathy, Congestive Heart Failure, Chronic Obstructive Pulmonary Disease (COPD), Coronary Artery Disease, Diabetes Mellitus Type 2, Gastroesophageal Reflux Disease(GERD), Heart Murmur, Hyperlipidemia, Hypertension, Internal Pacemaker, Myocardial Infarction, Peripheral Artery Disease, Peripheral Vascular Disease, Urinary Tract Infection Denies:: Diabetes Mellitus Type 1, MRSA, Seizures *Have you ever received a pneumonia vaccine?: Yes *Have you received a flu vaccine this season?: Yes Other Medical History: Reports: Arthritis, Cataracts Other Surgeries: Yes: CABG, Cardiac Catheterization, Cardiac Surgery, Colonoscopy, EGD, Open Heart Surgery, Pacemaker, Other (knee surgery) Amputation: No Fractures: Yes - *Social History Last grade of school completed: High school graduate Smoking Status: Former smoker Tobacco Type: cigarettes # Packs/Day (cigarettes): 1 Alcohol Intake: never Substance Use Type: denies use *Occupational Status:: disabled Housing: house Household Members: spouse *Travel in the last 8 weeks: None Family Hx:: Diabetes, Heart Attack ROS - Cons Reports fatigue, Reports weakness - ENT Reports hearing loss - Card Reports shortness of breath, Reports shortness of breath with activity, Reports leg swelling - Resp Respiratory: Reports change in phlegm color, Reports cough, Reports dyspnea on exertion, Reports excessive phlegm production, Denies coughing up blood, Denies pain on inspiration, Denies pain with cough, Reports cough with sputum production, Denies pain with breathing - GI Gastrointestingal: Reports: abdominal pain - [place] Musculoskeletal: Reports back pain Meds Home Medications Medication Instructions Recorded Confirmed Type Omeprazole [Omeprazole 40mg 40 mg PO DAILY 02/17/21 05/09/21 History Capsule] Aspirin [Aspirin 81mg EC Tab] 81 mg PO DAILY 30 Days #30 tab 03/30/21 05/09/21 Rx Atorvastatin Calcium [Lipitor 40mg 40 mg PO HS 30 Days #30 tab 03/30/21 05/09/21 Rx Tab] Finasteride [Proscar] 5 mg PO DAILY 30 Days #30 tab 03/30/21 05/09/21 Rx Ipratropium/Albuterol Sulfate 3 ml IH Q6HP PRN 30 Days #60 03/30/21 05/09/21 Rx [Duoneb 3mL neb] ampul.neb Metformin HCl [Metformin 1000mg 1,000 mg PO BID 30 Days #60 tab 03/30/21 05/09/21 Rx Tablets] Metoprolol Succinate [Metoprolol 50 mg PO DAILY 30 Days #30 tab 03/30/21 05/09/21 Rx Succinate 50mg Tablet*] furosemide 40 mg tablet 40 mg PO DAILY tab 05/04/21 05/09/21 History potassium chloride 20 mEq 20 meq PO DAILY tab 05/04/21 05/09/21 History tablet,extended release(part/cryst) Morphine Sulfate [Roxanol 20mg/mL 0.75 ml PO Q4HP PRN 05/09/21 05/10/21 History 1mL oral soln UDC] Allergies Allergy/AdvReac Type Severity Reaction Status Date / Time No Known Allergies Allergy Verified 05/04/21 12:57 Exam - Constitutional Constitutional:: Present: comfortable - HENMT Exam HENMT: Present: atraumatic - Eye Exam Eyes:: Present: normal appearance both eyes and related structures - Neck Exam Neck:: Present: normal visual inspection - Respiratory Exam Respiratory:: Present: able to speak in complete sentences, respiratory distress, crackles, wheezing - Cardiovascular Exam Cardiac:: Present: S1, S2 - GI Exam GI:: Present: soft, obese - Skin Exam Skin: Presen
--- NOTE | 2021-05-10 23:26 | PC.NURSE ---
CALLED THIS RN REQUESTING A PT. UPDATE; NO BEDS AVAILABLE AT THIS TIME
[2021-05-11] VITALS (9 sets, daily range): BP systolic 111–125; BP diastolic 38–64; PULSE 70–74; RESP 16–22; TEMP 36.4–37.2; O2SAT 90–99
--- NOTE | 2021-05-11 04:43 | PC.NURSE ---
Addendum entered by Chel Ramos RN 05/11/21 05:47: 1.5L NC WITH O2 SAT 95% AT THIS TIME Original Note: PT. HAS C/O SOA, ESPECIALLY WITH MOVEMENT; O2 SAT >95% ON 3L NC; WILL ATTEMPT TO WEAN. INTERMITTENT LOOSE COUGH NOTED. NO N/V/D OR DIZZINESS REPORTED.
[2021-05-11 08:40] LABS: Basophils # 0.1 K/mm3 (0-0.2); Basophils % 0.4 % (0.1-2.0); Eosinophils # 0.2 K/mm3 (0.0-0.4); Hematocrit 36.1 % (42.0-52.0); Hemoglobin 10.8 g/dL (14.1-18.0); Lymphocytes # 3.4 K/mm3 (0.7-4.5); Lymphocytes % 20.4 % (10-50); Mean Corpuscular HGB Conc 29.8 g/dL (31.8-35.4); Mean Corpuscular Hemoglobin 22.1 pg (27.0-31.2); Mean Corpuscular Volume 74.1 fl (80-94); Monocytes # 12.2 K/mm3 (0.1-1.0); Monocytes % 73.6 % (1.7-9.3); Neutrophils # 0.8 K/mm3 (1.8-7.8); Platelet Count 194 K/mm3 (142-424); Red Blood Count 4.88 M/mm3 (4.60-6.20); Red Cell Distribution Width 16.1 % (11.5-17.5); White Blood Count 16.6 K/mm3 (4.8-10.8)
--- NOTE | 2021-05-11 08:52 | HMH.PNCARD ---
Subjective Date: 05/11/21 Time: 08:52 Principal diagnosis: severe , SOA Interval history: This is an 81-year-old white gentleman who presented to the emergency department complaints of shortness of breath that has been progressively worsening over the last several days as well as confusion, fatigue, a nonproductive cough and chest congestion. The patient has severe aortic stenosis and would benefit from having a TAVR. Dr. Nicole did speak with Dr. Abarca yesterday and the patient is a currently awaiting transfer to [facility] for consideration of the TAVR procedure for his severe aortic stenosis. This morning he states that his shortness of breath is still present. He gets really short of breath with just talking. This is significantly worsened with exertion but he is so weak right now that he is really not ambulating at all. He denies any chest pain or pressure. He denies any fever, chills, nausea, vomiting or diarrhea. His shortness of breath is associated with PND and orthopnea. His daughter states that he was significantly confused last night and was pulling on all of his lines. She states that he is so unsteady on his feet, she was afraid he was going to fall. The patient has been removed for hospice since he is now agreeable in proceeding with TAVR. Exam Vital signs and Labs for Last 24 Hours: Temp Pulse Resp BP Pulse Ox 98.3 F 71 18 125/64 96 05/11/21 04:00 05/11/21 06:04 05/11/21 04:00 05/11/21 04:00 05/11/21 06:04 Laboratory Results - last 24 hr 05/10/21 00:49: TSH 3.15 I & O for Last 24 hours: Intake & Output 05/08/21 05/09/21 05/10/21 05/11/21 23:59 23:59 23:59 23:59 Intake Total 1440 / 1440 Output Total 850 / 850 700 / 700 Balance 590 / 590 -700 / -700 Weight 280 lb 279 lb 15.793 oz Microbiology Reports for the Last 24 Hours: Microbiology 05/10/21 19:36 Sputum - Expectorated Sputum Gram Stain - Final 05/10/21 00:43 Urine,Clean Catch Urine Culture - Preliminary NO GROWTH AFTER 24 HOURS Narrative: Telemetry strip is ventricular pacing with a rate of 70. - Constitutional no acute distress, morbidly obese - *Routine HEENT Exam Head: Present: normocephalic, atraumatic Eye: Present: EOMI, PERRL ENT: Present: mucous membranes moist - *Routine Neck Exam Present: supple, full ROM, normal carotid upstroke. Absent: JVD, carotid bruit, lymphadenopathy - *Routine Respiratory Exam Present: decreased breath sounds, rales, rhonchi, wheezes - *Routine Cardiovascular Exam Present: RRR, Normal S1, Normal S2, murmur - *Routine Abdominal Exam Present: soft, normoactive bowel sounds. Absent: tenderness, distended - *Routine Extremities Exam Present: edema, full ROM, pulses intact, normal capillary refill. Absent: cyanosis, clubbing - *Routine Skin Exam Present: intact, warm. Absent: erythema, rash - *Routine Neurological Exam Present: alert, oriented X3, CN II-XII intact. Absent: sensory deficit, motor deficit Progress Note: A&P (1) SOB (shortness of breath) Status: Acute (2) Severe aortic stenosis Status: Acute (3) CHF (congestive heart failure) Status: Acute (4) Acute and chronic respiratory failure Status: Acute (5) COPD exacerbation Status: Acute (6) Weakness Status: Acute (7) Coronary artery disease Status: Chronic (8) Diabetes mellitus type 2 in obese Status: Chronic (9) HLD (hyperlipidemia) Status: Chronic (10) Automatic implantable cardioverter-defibrillator in situ Status: Chronic (11) History of coronary artery bypass graft Status: Chronic (12) HTN (hypertension) Status: Chronic Assessment and Plan for All Diagnoses:: Plan: 1. The patient was admitted to the hospital for worsening shortness of breath and decline in his overall status. He was also having worsening of confusion at home and unable to care for himself. The patient does have sever
[2021-05-11 09:00] LABS: Chloride 96 mmol/L (98-107); Sodium 139 mmol/L (136-145)
[2021-05-11 09:01] LABS: Potassium 4.7 mmoL/L (3.5-5.1)
[2021-05-11 09:03] LABS: Blood Urea Nitrogen 39 mg/dl (9-20); Creatinine Clearance Estimated 56 mL/min (50-200); Estimated Glomerular Filt Rate 93 ml/min (>60); GFR (African American) 112 ML/MIN (>60); Neutrophils % 4.6 % (37.0-80.0)
[2021-05-11 09:04] LABS: Anion Gap 14.7 mEq/L (5-15); Calcium 8.9 mg/dl (8.4-10.2); Carbon Dioxide 33 mmol/L (22.0-30.0); Glucose 150 mg/dl (74-100); MANUAL DIFFERENTIAL MANUAL DIFFERENTIAL (MANUAL DIFF)
--- NOTE | 2021-05-11 09:04 | HMH.ACPN2 ---
Internal Medicine - PN: Subj *Date: 05/11/21 *Time: 09:04 Interval history: Patient's daughter is at bedside. He has remained confused and refused to lie back in the bed. He is most comfortable in the recliner. She states he does not sleep but dozes off. He periodically pulls everything off. He has been eating. He is dyspneic with just talking. He denies chest pain. Continues to await a bed at [facility]. CBC today reveals white blood cell count of 16,600 with a hemoglobin of 10.8 hematocrit of 36.1. Blood chemistries reveal normal sodium and potassium with a BUN of 39 and creatinine of 0.8. Chest x-ray yesterday showed moderate cardiomegaly with no acute cardiac or pulmonary process. Exam Vital signs and Labs for Last 24 Hours: Temp Pulse Resp BP Pulse Ox 98.3 F 71 18 125/64 96 05/11/21 04:00 05/11/21 06:04 05/11/21 04:00 05/11/21 04:00 05/11/21 06:04 Laboratory Results - last 24 hr 05/10/21 00:49: TSH 3.15 05/11/21 08:00: WBC 16.6 H, RBC 4.88, Hgb 10.8 L, Hct 36.1 L, MCV 74.1 L, MCH 22.1 L, MCHC 29.8 L, RDW 16.1, Plt Count 194, MPV 8.0, Neut % (Auto) 4.6 L, Lymph % (Auto) 20.4, [place] % (Auto) 73.6 H, Eos % (Auto) 1.0, Baso % (Auto) 0.4, Neut # (Auto) 0.8 L*, Lymph # (Auto) 3.4, [place] # (Auto) 12.2 H, Eos # (Auto) 0.2, Baso # (Auto) 0.1 05/11/21 08:00: Sodium 139, Potassium 4.7, Chloride 96 L I & O for Last 24 hours: Intake & Output 05/08/21 05/09/21 05/10/21 05/11/21 11:59 11:59 11:59 11:59 Intake Total 600 / 600 840 / 840 Output Total 850 / 850 700 / 700 Balance -250 / -250 140 / 140 Weight 280 lb 279 lb 15.793 oz Microbiology Reports for the Last 24 Hours: Microbiology 05/10/21 19:36 Sputum - Expectorated Sputum Gram Stain - Final 05/10/21 00:43 Urine,Clean Catch Urine Culture - Preliminary NO GROWTH AFTER 24 HOURS - Constitutional no acute distress Comments: Appears comfortable sitting up in the recliner. Dyspneic with speaking. - *Routine Respiratory Exam Present: wheezes (Bilateral inspiratory and expiratory) - *Routine Cardiovascular Exam Present: RRR, murmur - *Routine Abdominal Exam Present: soft, normoactive bowel sounds. Absent: tenderness - *Routine Extremities Exam Present: edema (Bilateral) - *Routine Neurological Exam Present: alert Assessment and Plan (1) SOB (shortness of breath) Status: Acute Category: Medical Code(s): R06.02 - Shortness of breath (2) Severe aortic stenosis Status: Acute Category: Medical Code(s): I35.0 - Nonrheumatic aortic (valve) stenosis (3) CHF (congestive heart failure) Status: Acute Qualifiers: Heart failure type: systolic Heart failure chronicity: acute on chronic Qualified Code(s): I50.23 - Acute on chronic systolic (congestive) heart failure Category: Medical Code(s): I50.9 - Heart failure, unspecified (4) Acute and chronic respiratory failure Status: Acute Qualifiers: Respiratory failure complication: hypercapnia Qualified Code(s): J96.22 - Acute and chronic respiratory failure with hypercapnia Category: Medical Code(s): J96.20 - Acute and chronic respiratory failure, unspecified whether with hypoxia or hypercapnia (5) COPD exacerbation Status: Acute Category: Medical Code(s): J44.1 - Chronic obstructive pulmonary disease with (acute) exacerbation (6) Weakness Status: Acute Category: Medical Code(s): R53.1 - Weakness (7) Coronary artery disease Status: Chronic Qualifiers: Coronary Disease-Associated Artery/Lesion type: bypass graft [place] vs. transplanted heart: [place] heart Associated angina: without angina Qualified Code(s): I25.810 - Atherosclerosis of coronary artery bypass graft(s) without angina pectoris Category: Medical Code(s): I25.10 - Atherosclerotic heart disease of [place] coronary artery without angina pectoris (8) Diabetes mellitus type 2 in obese Status: Chr
[2021-05-11 10:43] LABS: Lymphocytes % 12 % (10-50); Microcytosis 3+; Monocytes % 3 % (2-9); Neutrophils % 85 % (42-76); Platelet Estimate Normal
[2021-05-11 10:44] LABS: Anisocytosis 1+; Hypochromasia 4+
[2021-05-11 10:50] LABS: Total Cells Counted 100
--- NOTE | 2021-05-11 15:07 | PC.NURSE ---
I have received report from Lee Carroll RN and will now be primary RN.
--- NOTE | 2021-05-11 18:36 | PC.NURSE ---
attempted to call report to ([phone]). bookmaker's clerk states that RN is busy at the moment and will call [facility] when she is ready to receive report.
--- NOTE | 2021-05-11 18:45 | PC.NURSE ---
received call back from Audelia @ [facility]. Report given to her. Called [facility] ambulance for transport.
--- NOTE | 2021-05-11 18:54 | PC.NURSE ---
called Dr. Pugh and updated him on pt transfer to . He verbalized understanding and stated to enter discharge order.
--- NOTE | 2021-05-11 19:26 | PC.NURSE ---
PT WAS TRANSFERRED VIA STRETCHER PER EMS TO DIFFERENT FACILITY AT 1925
--- NOTE | 2021-05-11 22:15 | HMH.DCSUM ---
General - General Admission date:: 05/10/21 Discharge date: 05/11/21 HPI HPI: Mr. Hargrove is an 81-year-old male with a history of COPD, CHF, and atrial fibrillation with ejection fraction noted to be 30 to 35%. He has been under the care of a nurse practitioner in [place] over the past several years. He was recently admitted to [facility] on 03/27/2021 and discharged 03/30/2021With a UTI and volume overload. At that time he responded well to antibiotic treatment and diuresis. Following is documentation from the emergency room: 81-year-old male presenting to the emergency department with shortness of breath. For the last few days his daughter has noticed worsening cough and chest congestion. He seems to be more confused. Cough is nonproductive. No fevers or chills. Is using oxygen, inhalers. No recent antibiotics or steroids. He has COPD and CHF. He is using 2 L by nasal cannula all of the time. He is on hospice for the last few days for CHF. Patient denies chest pain, abdominal pain, nausea, vomiting. In summary this is an 81-year-old male presenting to the emergency department with cough and chest congestion. Patient clinically stable on arrival. On 3 L by nasal cannula. Oxygen saturations are 92%. Concern for CHF exacerbation, COPD, pneumonia. Patient's family members arrived. Provide additional history. Patient was using oxygen only at night until last week. Seems to have a precipitous decline. Now using 2 to 3 L all of the time. Does not have CPAP at night. Seems confused. Unable to care for himself or to activities of daily living. Initial laboratory results remarkable for elevated BNP at 1800. Most recently was around 1999. ABG shows acidosis to 7.23 with work-up concerning for CHF as well as COPD. Patient receiving Rocephin, azithromycin, methylprednisolone. Given 40 mg IV Lasix. Will admit for further management. Laboratory data on admission: CBC with white blood cell count of 18,500. Hemoglobin is 11.1 hematocrit of 37.6. Blood chemistries show sodium of 138 potassium 4.6 renal function is satisfactory. Lactate is 1.9. BNP is 1810. Urine shows 1+ protein and 3+ blood trace of leukoesterase and 2+ bacteria.Chest x-ray reveals cardiomegaly With no acute cardiac or pulmonary process. ABGs on admission show a pH of 7.23 PCO2 of 64.1 PO2 of 90.1 and bicarb of 26.4. Daughter did stay with the patient during the night. She stated he had an episode with extreme shortness of breath. He did have a breathing treatment after which he did recover. She feels that he is at his normal now although he remains confused. He does know who she is but cannot tell you where he is. He ate fair for breakfast. Hospital Course Hospital Course: The patient was started on DuoNeb treatments and Rocephin was continued. Cardiology was consulted. He does have cardiomyopathy associated with severe aortic stenosis and they felt he would benefit from a TAVR procedure in order to improve his aortic stenosis. Dr. Nicole had a long discussion with the patient and his daughter about transferring the patient to [facility] and they were in agreement. Dr. Nicole spoke with Dr. Abarca and he agreed to accept the patient in transfer to . He was also seen by pulmonology who felt he should be continued on antibiotics for community-acquired pneumonia, prednisone 40 mg daily for 5 days, duo nebs, and await culture results. A bed was found for the patient and he was transferred to [facility]. Objective Vital signs: Temp Pulse Resp BP Pulse Ox 99.0 F 70 16 125/38 L 90 L 05/11/21 16:00 05/11/21 16:00 05/11/21 16:00 05/11/21 16:00 05/11/21 16:00 Narrative: - *Routine HEENT Exam Head: Present: normocephalic, atraumatic Eye: Present: PERRL. Absent: conjunctival icterus, scleral injection ENT: Present: mucous membranes moist, oropharynx clear - *Routine Neck Exam Present: suppl
== END 2021-05-11 19:31 | disposition short-term general hospital (02) | DRG 189 ==
LOC: ER 21:45 → 2ND 05-10 00:43
PROVIDERS: Nurse Practitioner Family; Admitting Provider Family Medicine; Emergency Provider Emergency Medicine; PCP Nurse Practitioner Family; Visit Provider Family Medicine
DX: J96.22 Acute and chronic respiratory failure with hypercapnia (principal); I50.23 Acute on chronic systolic (congestive) heart failure; J44.1 Chronic obstructive pulmonary disease with (acute) exacerbation; I42.9 Cardiomyopathy, unspecified; Z68.41 Body mass index [BMI] 40.0-44.9, adult; I11.0 Hypertensive heart disease with heart failure; I48.91 Unspecified atrial fibrillation; Z95.1 Presence of aortocoronary bypass graft; Z95.0 Presence of cardiac pacemaker; I35.0 Nonrheumatic aortic (valve) stenosis; E11.9 Type 2 diabetes mellitus without complications; Z79.84 Long term (current) use of oral hypoglycemic drugs; Z79.899 Other long term (current) drug therapy; E66.9 Obesity, unspecified
CPT/HCPCS: 36415; 71045; 80048; 80053; 81001; 82803; 83605; 83880; 84443; 85007; 85025; 87040; 87070; 87077; 87086; 87186; 87205; 93005; 94640; 96374; 96375; 99284; J0456; U0003

== ENCOUNTER 2021-08-18 09:31 | Day surgery (SDC) | payer MEDICARE, SELFPAY ==
[2021-08-18] VITALS (8 sets, daily range): BP systolic 79–166; BP diastolic 38–93; PULSE 48–77; RESP 16–18; O2SAT 95–100; BMI 38.9
--- NOTE | 2021-08-18 | IR_ITS ---
APPROVED REPORT Patient Location: Outpatient PROCEDURES 1. Pocket Revision 2. Ventricular sensing lead to the right ventricle capped 3. Placement of ventricular sensing pacing and shocking lead in the right ventricular apex. 4. Placement of left ventricular sensing pacing lead via the coronary sinus. 5. Permanent cardiac resynchronization therapy with ICD implantation/biventricular pacemaker. INDICATION Systolic Congestive Heart Failure, ejection < 35%, [place] Heart Assoication Class 3 Congestive Heart Failure, QRS duration > 120 ms, RV pacing >40% Informed consent was obtained prior to the procedure. COMPLICATIONS None Estimated Blood Loss: Less than 10 ML TECHNIQUE 1% Lidocaine with epinephrine used to anesthetized the left anterior aspect of the chest. Scalpel was used to open the existing pocket. The generator was excised. The patient was then placed in Trendelenburg position and the subclavian vein was accessed 2 times via the Selinger technique. A 8 Welsh sheath was placed under fluoroscopic guidance into the subclavian vein. The dilator was removed from the sheath. Using fluoroscopic guidance, the ventricular lead was placed into the right ventricular apex, screwed and secured into place. Electronic interrogation proved acceptable thresholds and voltage within the lead. Using 3-0 silk, the ventricular lead was then secured into place and sheath peeled away. Following this, a 9.5 Welsh sheath and dilator was then placed over one of the wires while keeping the other wire in place within the subclavian vein. The dilator was removed from the sheath. Using fluoroscopic guidance, contrast was used to visualize the coronary sinus, the left ventricular lead was placed into the coronary sinus. Electronic interrogation proved acceptable thresholds and voltage within the lead. Using 3-0 silk, the left ventricular lead was then secured into place and sheath peeled away. 1 gram of Ancef was used to flush the pocket. Both leads were connected to generator and tested via computer. The defibrillator then secured to the fascia. Monocryl was used to close the subcutaneous layers while lisa were used to close the cutaneous layer. A pressure dressing was placed and the patient was transferred to the postop holding area in stable condition for postoperative care. INTERROGATION Generator Model number: Vigilant X4 KITCHEN CLEANER-D IS-1/DF4/IS4 G247 Generator Serial number: [id number] Atrial lead model number: CherellelTKristi Optim IS-1 Bi Positive Fix Steroid RA/RV Atrial lead serial number: [id number] P-wave: 1.0 mV Impedence: 550 Ohms Threshold: Afib Left Ventricular lead model number: Adair X4 Straight LVA Quad Electrode IS4 Passive 86 cm 4671 Left Ventricular lead serial number: [id number] R-wave: 4.0 mV Impedence: 800 Ohms Threshold: Right Ventricular lead model number: Sunol 4-Front Active Fix Dual Coil 59 cm 0675 Right Ventricular lead serial number: [id number] R-wave: 8.0 mV Impedence: 850 Ohms Threshold: 1.0V@0.4ms Current: 1.2 mA Shock Impedence: 48 Ohms Pacing Parameters: Mode: VVIR Base/Max Track: ICD Rate Cutoffs: VT-1: 180 bpm VT-2: VF: 200 bpm Quick Convert 41JX8 ATP, 41JX6 No diaphragmatic stimulation at 10 volts. IMPRESSION 1. Successful Pocket Revision 2. Successful Ventricular sensing lead to the right ventricle capped 3. Successful Placement of ventricular sensing pacing and shocking lead in the right ventricular apex. 4. Successful Placement of left ventricular sensing pacing lead via the coronary sinus. 5. Successful Permanent cardiac resynchronization therapy with ICD implantation/biventricular pace
[2021-08-18 10:11] LABS: Basophils # 0.1 K/mm3 (0-0.2); Basophils % 0.5 % (0.1-2.0); Coronavirus 19, PCR Not Detected (NotDetected); Eosinophils # 0.7 K/mm3 (0.0-0.4); Eosinophils % 4.7 % (0.1-12.0); Hemoglobin 12.1 g/dL (14.1-18.0); Influenza A, PCR Not Detected (NotDetected); Influenza B, PCR Not Detected (NotDetected); Lymphocytes % 21.3 % (10-50); Mean Corpuscular HGB Conc 29.4 g/dL (31.8-35.4); Mean Corpuscular Hemoglobin 22.5 pg (27.0-31.2); Mean Corpuscular Volume 76.3 fl (80-94); Mean Platelet Volume 8.8 fl (7.4-10.4); Monocytes # 8.2 K/mm3 (0.1-1.0); Monocytes % 59.4 % (1.7-9.3); Platelet Count 292 K/mm3 (142-424); Red Blood Count 5.37 M/mm3 (4.60-6.20); Red Cell Distribution Width 16.5 % (11.5-17.5); White Blood Count 13.9 K/mm3 (4.8-10.8)
[2021-08-18 10:22] LABS: Neutrophils % 14.1 % (37.0-80.0)
[2021-08-18 10:23] LABS: MANUAL DIFFERENTIAL MANUAL DIFFERENTIAL (MANUAL DIFF)
[2021-08-18 10:54] LABS: Anion Gap 10.6 mEq/L (5-15); Blood Urea Nitrogen 21 mg/dl (9-20); Calcium 9.1 mg/dl (8.4-10.2); Carbon Dioxide 34 mmol/L (22.0-30.0); Chloride 99 mmol/L (98-107); Creatinine Clearance Estimated 98 mL/min (50-200); Estimated Glomerular Filt Rate 93 ml/min (>60); GFR (African American) 112 ML/MIN (>60); Glucose 139 mg/dl (74-100); Potassium 3.6 mmoL/L (3.5-5.1); Sodium 140 mmol/L (136-145)
[2021-08-18 10:57] LABS: Eosinophils % 2 % (0-3); Lymphocytes % 12 % (10-50); Monocytes % 2 % (2-9); Neutrophils % 84 % (42-76); Total Cells Counted 100
[2021-08-18 10:58] LABS: Microcytosis 1+
[2021-08-18 10:59] LABS: Hypochromasia 2+; Platelet Estimate Normal
[2021-08-18 11:00] LABS: Anisocytosis 1+
--- NOTE | 2021-08-18 13:57 | XR_ITS ---
PROCEDURE: XR CHEST PORTABLE CLINICAL HISTORY: Confirm pacemaker/AID placement COMPARISON: CR XR CHEST PORTABLE from 03/27/2021 CR XR CHEST PORTABLE from 05/09/2021 CR XR CHEST PORTABLE from 05/10/2021 FINDINGS: There is extensive overlying artifact. There is a new left subclavian pacemaker present. Multiple pacemaker wires are noted including a biventricular pacer with an AICD. The leads appear in good position. There is no obvious pneumothorax. Defibrillator pad overlies the left apex somewhat obscuring this region. Suspect small left pleural effusion. Cardiomegaly. There has been a prior CABG with fracture of the 2 most superior median sternotomy wires. Additional pacer wires are present as before IMPRESSION: Status post biventricular/AICD placement from left subclavian approach. No obvious pneumothorax. Dictated by: Gavin Hernandez MD 08/18/2021 14:51 Gavin Hernandez MD in [facility] 08/18/2021 14:51
== END 2021-08-18 15:37 | disposition home or self-care (01) ==
PROVIDERS: PCP Nurse Practitioner Family; Visit Provider Internal Medicine
PROC: 0JH609Z Insertion of Cardiac Resynchronization Defibrillator Pulse Generator into Chest Subcutaneous Tissue and Fascia, Open Approach (ICD-10-PCS; CPT 33249; principal; 2021-08-18 11:00)
DX: Z45.02 Encounter for adjustment and management of automatic implantable cardiac defibrillator (principal); T82.111A Breakdown (mechanical) of cardiac pulse generator (battery), initial encounter; E11.9 Type 2 diabetes mellitus without complications; I50.22 Chronic systolic (congestive) heart failure; I11.0 Hypertensive heart disease with heart failure; I25.810 Atherosclerosis of coronary artery bypass graft(s) without angina pectoris; Z95.1 Presence of aortocoronary bypass graft; I48.0 Paroxysmal atrial fibrillation; I35.0 Nonrheumatic aortic (valve) stenosis; I42.9 Cardiomyopathy, unspecified; Z79.899 Other long term (current) drug therapy; Z79.84 Long term (current) use of oral hypoglycemic drugs; Z20.822 Contact with and (suspected) exposure to COVID-19
CPT/HCPCS: 33249; 71045; 80048; 85007; 85025; C1769; C1882; C1895; C1900; C9803; U0003; U0005